=== PATIENT | male | born 1950 | race Caucasian/White ===

== ENCOUNTER 2017-07-21 00:03 | Inpatient (IN) | payer BC ==
[2017-07-21] MEDS ORDERED: FUROSEMIDE 20 MG/ 2ML VIAL ONE (00:25)
[2017-07-21 01:13] LABS: Arterial Blood Carboxyhemoglob 1.3 % (0-1.5); Blood O2 Saturation 97.7 % (92-98.5)
[2017-07-21 02:33] LABS: Protime INR 3.04
[2017-07-21 02:34] LABS: Absolute Lymphocytes (CBC) 1.8 K/uL (0.7-4.9); Absolute Monocytes 1.2 K/uL (0.1-1.3); Absolute Neutrophil 8.4 K/uL (1.8-8.0); Basophils % 1.4 % (0-1.3); Eosinophils % 0.2 % (0-4.4); Hematocrit 38.7 % (39.6-49.0); Lymphocytes % 15.8 % (15.3-44.8); MCH 25.3 pg (27.0-35.0); MCV 82.3 fL (80-100); MPV 9.2 fL (7.6-11.3); Monocytes % 10.6 % (3.3-12.3)
[2017-07-21] MEDS ORDERED: LORazepam 2 MG/ML VIAL ONE (03:11)
[2017-07-21] MEDS ORDERED: RSI MEDICATION KIT IV ONE (03:17)
[2017-07-21 03:20] LABS: Albumin 3.5 g/dL (3.2-5.5); Bilirubin Direct 5.5 mg/dL (0-0.2); Magnesium 1.9 mg/dL (1.8-2.5); Protein, Total 7.8 g/dL (6.0-8.3)
[2017-07-21 03:22] LABS: Bilirubin Total 10.3 mg/dL (0.3-1.2); Potassium 3.8 mEq/L (3.6-5.0)
[2017-07-21] MEDS ORDERED: CEFEPIME 1 GM/100 ML BAG IV ONE (03:23)
[2017-07-21] MEDS ORDERED: VANCOMYCIN/NS 1 gm 1 GM/250 ML BAG ONE (03:23)
[2017-07-21] MEDS ORDERED: D50W 25 GM/50 ML SYRINGE IV ONE ×3 (03:27→08:40)
[2017-07-21] MEDS ORDERED: PROPOFOL 1,000 MG/100 ML VIAL IV ONE (03:34)
[2017-07-21] MEDS ORDERED: NOREPINEPHRINE 4mg/D5W 250mL 4 MG/250 ML BAG IV ONE (03:57)
[2017-07-21] MEDS ORDERED: MIDAZOLAM HCL 2 MG/2 ML INJ ONE ×2 (04:10→05:07)
[2017-07-21 04:17] LABS: Anisocytosis 3+; Blood Morphology Comment NOTED (NOT SEEN); Platelet Estimate ADEQ; Target Cells 1+; Teardrop Cell 3+; Urine White Blood Cell Casts OK
[2017-07-21 04:42] LABS: Arterial Blood Carboxyhemoglob 0.6 % (0-1.5); Blood O2 Saturation 99.1 % (92-98.5)
[2017-07-21] MEDS ORDERED: NA CHLORIDE 0.9% 1,000 ML ONE ×2 (04:55→05:31)
[2017-07-21] MEDS ORDERED: FENTANYL CITR 100 MCG/2 ML ONE (05:02)
[2017-07-21 05:35] LABS: Urine Blood TRACE (NEG); Urine Glucose NEGATIVE (NEG); Urine Protein 3+ (NEG); Urine Specific Gravity >1.030 (1.005-1.030)
--- NOTE | 2017-07-21 05:42 | ER ---
Nurse's Notes [facility] Name: Chai Rodrigues Age: 66 yrs Sex: Male : 1950 Arrival Date: 07/21/2017 Time: 00:10 Bed 3 Private MD: Diagnosis: Severe sepsis with septic shock Presentation: 07/20 23:58 Presenting complaint: EMS states: they were toned out for pt having shortness of breath bb getting progressively worse. Transition of care: patient was not received from another setting of care. Onset of symptoms was July 21, 2017. Care prior to arrival: IV initiated. 20 GA, in the right antecubital area, Glucose check: 129 Oxygen administered. via nasal cannula. 23:58 Method Of Arrival: EMS: [facility] bb 23:58 Acuity: LES 2 bb Historical: - Allergies: 07/21 00:14 Iodine; bb - Home Meds: 00:14 acetaminophen 500 mg Oral tab 1 tab twice a day [Active]; amiodarone 400 mg Oral tab 1 bb tab once daily [Active]; atorvastatin 40 mg Oral tab 1 tab once daily [Active]; carvedilol 25 mg Oral tab every 12 hours [Active]; Centrum Oral [Active]; ciprofloxacin 500 mg BID Oral [Active]; clonazepam 0.5 mg Oral tab 1 tab 3 times per day [Active]; dicyclomine 10 mg Oral cap 1 cap daily [Active]; duloxetine 30 mg Oral cpDR 1 cap once daily [Active]; furosemide 40 mg Oral tab 1 tab 2 times per day [Active]; levothyroxine 125 mcg tab 1 tab once daily [Active]; melatonin 10 mg Oral tab nightly [Active]; metolazone 10 mg Oral tab take 1 tab 1 hour prior to morning Lasix on Sat, Mon, Wed [Active]; pantoprazole 40 mg Oral TbEC 1 tab once daily [Active]; potassium chloride 10 mEq Oral cpER 2 caps 2 times per day [Active]; Wellbutrin XL 150 mg Oral Tb24 1 tab once daily [Active]; zolpidem 10 mg Oral tab 1 tab once daily [Active]; - PMHx: 00:14 CARPEL TUNNER; CHF; colon cancer; Hyperlipidemia; Hypertension; Pneumonia; bb - Immunization history:: Adult Immunizations up to date, Pneumococcal vaccine is up to date, Flu vaccine is up to date. - Social history:: Smoking status: Patient/guardian denies using tobacco, Patient/guardian denies using alcohol, street drugs. Screenin:52 Abuse screen: Denies threats or abuse. Nutritional screening: No deficits noted. ag2 Tuberculosis screening: No symptoms or risk factors identified. Fall Risk Gait- Weak (10 pts.). Assessment: 00:52 General: Appears distressed, uncomfortable, obese, unkempt, Behavior is cooperative, ag2 anxious, Smells of Reports SOB off and on for last month. Pain: Denies pain. Neuro: Level of Consciousness is awake, alert, obeys commands, Oriented to person, place, time, Strand Galvanizer are equal bilaterally Weakness Pupils are sluggish, Cardiovascular: Capillary refill is > 3 seconds. Respiratory: Reports shortness of breath at rest labored breathing since patient reports sob off and on for 1 month. GI: Abdomen is distended, noted to have ascites. : Reports Patient reports very urine production for last month. Derm: Skin is moist, Skin is jaundiced, Skin temperature is cool Rash noted that is red, on pelvis. Musculoskeletal: General weakness noted. 01:05 Reassessment: 18fr fofana catheter placed. 8cc catheter ballon inflated, one attempt, ag2 urine return and sent off for urinalysis. . 01:32 Reassessment: Pt grand daughter states she is going to leave but will be back, gave ea contact info in case of an emergency Geeta Rivera [phone]. 01:48 Reassessment: patient complaining of urinary pain. Fofana has minimal dark urine in ag2 collection bag. Patient alert, oriented. Patient on 2L NC patient breathing effort improving with oxgyen. . 02:31 Reassessment: Patient in room with NC off, Patient sob, spo2-unable to read. Placed ag2 patient back on NC at 2L. warmed fingers, spo2: 97%. Patient sitting up in bed stating "I cannot get comfortable". repositioned patient.. 03:55 Reassessment: PROPOFOL ON HOLD 2/2 HYPOTENSION. bp 04:15 Reassessment: LEVOPHED TITRATED TO 20 MCG/MIN. bp 04:30 Reassessment: PT AGITATED AND UNCOOPERATIVE. UNABLE TO RESPOND TO VERBAL STIMULI OR bp PARTICIPATE IN HEALTH CARE PROCESS. RESTRAINTS PLACED FOR PT SAFETY. 04:30 Reassessment: LEVOPHED TO 30 MCG/MIN. bp 06:39 Reassessment: pt intubated, ETT in place, OG in place, fofana catheter in place, IV site bb patent, intact with fluids infusing, pt accompanied by Rachel ARANDA, Milton RT, Sintia RN, Suzanne RN, [facility] tech to ICU bed 3, pt on monitor, bagged by Rachel ARANDA, report given to Nadira WILSON. Vital Signs: 00:14 BP 151 / 125; Pulse 132; Resp 28 S; Temp 98.2(A); Pulse Ox 96% on 2 lpm NC; Weight bb 158.76 kg (R); Height 5 ft. 8 in. (172.72 cm) (R); Pain 0/10; 01:21 BP 152 / 134; Pulse 132; Resp 24; Pulse Ox 97% 2 lpm ; ag2 02:34 BP 138 / 96; Pulse 103; Resp 32; Pulse Ox 99% on 2 lpm NC; ag2 03:30 BP 141 / 107; Pulse 137; Resp 30; Pulse Ox 100% ; bp 03:45 BP 89 / 33; Pulse 123; Resp 28; Pulse Ox 96% ; bp 04:00 BP 63 / 32; Pulse 133; Resp 30; Pulse Ox 100% ; bp 04:15 BP 94 / 49; Pulse 140; Resp 27; Pulse Ox 98% ; bp 04:34 BP 129 / 107; Pulse 142; Resp 30; Pulse Ox 100% ; bp 04:47 BP 65 / 29; Pulse 141; Resp 30; Pulse Ox 97% ; bp 05:00 BP 112 / 87; Pulse 146; Resp 27; Pulse Ox 97% ; bp 05:15 BP 109 / 43; Pulse 129; Resp 20; Pulse Ox 100% on 50% FiO2 ETT vent; tl2 05:30 BP 98 / 44; Pulse 138; Resp 31; Pulse Ox 100% on 50% FiO2 ETT vent; tl2 05:45 BP 106 / 32; Pulse 135; Resp 26; Pulse Ox 99% on 50% FiO2 ETT vent; tl2 06:00 BP 124 / 97; Pulse 134; Resp 27; Pulse Ox 98% on 50% FiO2 ETT vent; tl2 00:14 Body Mass Index 53.22 (158.76 kg, 172.72 cm) ED Course: 00:10 Patient arrived in ED. rg2 00:13 Triage completed. bb 00:14 Arm band placed on Patient placed in an exam room, on a stretcher, on oxygen, on bb director of enrollment, on pulse oximetry. EKG completed in triage. Results shown to MD. 00:16 Dinesh Thurman PA is PHCP. jr8 00:16 Hayden Benjamin MD is Attending Physician. jr8 00:22 Sintia Byrnes RN is Primary Nurse. ea 00:52 Patient has correct armband on for positive identification. Placed in gown. Bed in low ag2 position. Call light in reach. Side rails up X2. Adult w/ patient. 00:52 No provider procedures requiring assistance completed. Maintain EMS IV. Dressing ag2 intact. Site clean \\T\\ dry. 00:56 X-ray completed. Portable x-ray completed in exam room. jw2 01:10 XRAY Chest (1 view) In Process Unspecified. EDMS 03:32 Assisted provider with intubation using 7.5 mm ETT via oral route. ET tube secured at bp 24cm at the teeth. Set up intubation tray. Intubated by Dinesh PATEL Placement verified by CXR, auscultating bilateral breath sounds, Patient tolerated well. 03:35 NGT: inserted 16 Fr. other ORAL verified placement of air over stomach, verified return bp of gastric contents, Placement verified by X-ray, to intermittent suction. Returned bile. 03:50 Assisted provider with central line placement. Set up central line tray. Triple lumen bp line placed in right femoral. Line placed by Dinesh PATEL Placement verified by blood return, Dressed with Tegaderm, Patient tolerated well. Before procedure, did Practitioner(s) obtain informed consent? No. Patient \\T\\ family education about procedure, CLABSI prevention and S/S of infection? No. Time-out/Briefing performed prior to start of procedure? Yes. Was handwashing/sanitizing done immediately prior to procedure? Yes. Was patient positioned to in a way to prevent air embolism? Yes. Was procedure site sterilized? Yes, with chlorhexidine. Was the site allowed to dry? Yes. Was local anesthetic and/or sedation utilized? Yes. During the procedure, did the Practitioner(s) maintain a sterile field? Yes. Were unused ports clamped during insertion? Yes. Was a 2nd qualified MD obtained after 3 unsuccessful insertion attempts? No. Was blood aspirated from each lumen? Yes. After the procedure, did the Practitioner(s) clean the site and apply a sterile dressing? Yes. 04:07 XRAY Chest (1 view) In Process Unspecified. EDMS 04:13 Radiology exam delayed due to patient too unstable to leave ER - nurse to call when jg1 ready. 05:40 Ethan Sargent MD is Hospitalizing Provider. Restraints: 04:30 Non-Violent Restraint: Order obtained. Initiated on July 21, 2017 at 04:30 Unable to bp provide Restraint education. PT INTUBATED AND SEDATED, UNABLE TO UNDERSTAND. Actions/Behavior observed: has impaired decision making, has decreased level of consciousness, unable to follow instructions, Less restrictive alternatives attempted: decrease environmental stimuli, placed near Nurse station, reoriented to location, medications evaluated, medicated for pain/anxiety, Alternative interventions: Ineffective. Clinical justification for use: airway protection, line protection, patient safety, Mental status: agitated/restless, Cognition: Unable to assess. Circulation: Within defined parameters (based on Cardiovascular assessment) Skin integrity: Within defined parameters (based on Integumentary assessment) Signs of injury related to restraint: No injuries noted. Range of Motion (ROM): declined. Hydration/Food: patient declined. Elimination/Hygiene: with urinary catheter, Restraint status: Soft wrist restraint (Right) Started. Soft wrist restraint (Left) Started. Criteria to discontinue Restraint not met. Restraint continued. Administered Medications: 00:33 Drug: Lasix 60 mg Route: IVP; Site: right antecubital; ea 02:00 Follow up: Response: No adverse reaction ea 03:20 Drug: Ativan 0.5 mg Route: IVP; Site: right antecubital; ea 04:14 Follow up: Response: Anxiety decreased bp 03:30 Drug: Ativan 1.5 mg Route: IVP; Site: right antecubital; bp 04:14 Follow up: Response: Anxiety decreased bp 03:30 Drug: Etomidate 20 mg Route: IVP; Site: right antecubital; bp 05:17 Follow up: Response: No adverse reaction bp 03:30 Drug: D50W 25 ml Route: IVP; Site: right antecubital; bp 05:15 Follow up: Response: No adverse reaction bp 03:31 Drug: Succinylcholine 100 mg Route: IVP; Site: right antecubital; bp 05:16 Follow up: Response: No adverse reaction bp 03:38 Drug: Propofol 5 mcg/kg/min Route: IV; Rate: calculated rate; Site: right antecubital; bp 06:34 Follow up: IV Status: Infusion continued upon admission bp 03:55 Drug: Levophed (4 mg/250 mL D5W 4 mcg/min Route: IV; Rate: calculated rate; Site: right bp antecubital; 06:34 Follow up: IV Status: Infusion continued upon admission bp 04:12 Drug: Versed 4 mg Route: IVP; Site: right antecubital; bp 05:14 Follow up: Response: Anxiety decreased bp 04:57 Drug: Cefepime 1 grams Route: IVPB; Rate: 200 ml/hr; Infused Over: 30 mins; Site: right tl2 antecubital; 05:21 Follow up: Response: No adverse reaction; IV Status: Completed infusion ea 05:02 Drug: NS 0.9% 1000 ml {Note: right femoral central line.} Route: IV; Rate: 1000 ml; bb Site: Other; 06:34 Follow up: IV Status: Completed infusion bp 05:03 Drug: fentaNYL (PF) 100 mcg Route: IVP; Site: right antecubital; bb 05:15 Follow up: Response: Anxiety decreased bp 05:09 Drug: Versed 2 mg Route: IVP; Site: right antecubital; bp 05:15 Follow up: Response: Anxiety decreased bp 05:21 Drug: vancoMYCIN 1 grams Route: IVPB; Infused Over: 2 hrs; Site: right antecubital; ea 06:35 Follow up: IV Status: Completed infusion bp 05:22 CANCELLED (Duplicate Order): Ativan 0.5 mg IVP once ea Point of Care Testing: Blood Glucose: 03:30 Blood Glucose: 59 mg/dL; bp 04:50 Blood Glucose: 80 mg/dL; bp Ranges: Outcome: 05:42 Decision to Hospitalize by Provider. gs 06:42 Patient left the ED. bb Signatures: Dispatcher [employer] EDMS Jason Clark2 Hanh Schaeffer Brenda, RN RN bb Dinesh Thurman PA PA jr8 Rody Sue2 Cat Irving RN RN tl2 Sintia Byrnes RN RN ea Starr, Gregory, MD MD gs Peltier, Brian, RN RN bp Garcia, [employer]na ag2 Corrections: (The following items were deleted from the chart) 02:11 02:09 BP 116 / 76; Pulse 90bpm; Resp 16bpm; Pulse Ox 97%; Temp 98.4F; Pain 10/10; ag2 ag2 03:20 03:19 Ativan 0.5 mg IVP in right antecubital ea yaw
--- NOTE | 2017-07-21 05:42 | EDPHYS ---
Physician Documentation [facility] Name: Chai Rodrigues Age: 66 yrs Sex: Male : 1950 Arrival Date: 07/21/2017 Time: 00:10 Bed 3 Private MD: ED Physician Hayden Benjamin HPI: 07/21 00:59 This 66 yrs old Male presents to ER via EMS with complaints of shortness of jr8 breath. 04:13 The patient has shortness of breath at rest. Onset: The symptoms/episode began/occurred jr8 gradually, 1 month(s) ago, and became worse today, and became persistent today. Duration: The symptoms are continuous. The patient's shortness of breath is aggravated by talking, walking. Associated signs and symptoms: The patient has no apparent associated signs or symptoms. Severity of symptoms: At their worst the symptoms were moderate in the emergency department the symptoms are unchanged. It is unknown whether or not the patient has had similar symptoms in the past. The patient has not recently seen a physician. Patient stated that he has been more short of breath for the past month but has become much worse today. Noticed he has been more yellow in color as well. History of Colon cancer with colon resection less then a year ago . Historical: - Allergies: 00:14 Iodine; bb - Home Meds: 00:14 acetaminophen 500 mg Oral tab 1 tab twice a day [Active]; amiodarone 400 mg Oral tab 1 bb tab once daily [Active]; atorvastatin 40 mg Oral tab 1 tab once daily [Active]; carvedilol 25 mg Oral tab every 12 hours [Active]; Centrum Oral [Active]; ciprofloxacin 500 mg BID Oral [Active]; clonazepam 0.5 mg Oral tab 1 tab 3 times per day [Active]; dicyclomine 10 mg Oral cap 1 cap daily [Active]; duloxetine 30 mg Oral cpDR 1 cap once daily [Active]; furosemide 40 mg Oral tab 1 tab 2 times per day [Active]; levothyroxine 125 mcg tab 1 tab once daily [Active]; melatonin 10 mg Oral tab nightly [Active]; metolazone 10 mg Oral tab take 1 tab 1 hour prior to morning Lasix on Sat, Mon, Wed [Active]; pantoprazole 40 mg Oral TbEC 1 tab once daily [Active]; potassium chloride 10 mEq Oral cpER 2 caps 2 times per day [Active]; Wellbutrin XL 150 mg Oral Tb24 1 tab once daily [Active]; zolpidem 10 mg Oral tab 1 tab once daily [Active]; - PMHx: 00:14 CARPEL TUNNER; CHF; colon cancer; Hyperlipidemia; Hypertension; Pneumonia; bb - Immunization history:: Adult Immunizations up to date, Pneumococcal vaccine is up to date, Flu vaccine is up to date. - Social history:: Smoking status: Patient/guardian denies using tobacco, Patient/guardian denies using alcohol, street drugs. ROS: 04:13 Eyes: Negative for injury, pain, redness, and discharge, ENT: Negative for injury, jr8 pain, and discharge, Neck: Negative for injury, pain, and swelling, Abdomen/GI: Negative for abdominal pain, nausea, vomiting, diarrhea, and constipation, Back: Negative for injury and pain, MS/Extremity: Negative for injury and deformity, Skin: Negative for injury, rash, and discoloration, Neuro: Negative for headache, weakness, numbness, tingling, and seizure. 04:13 Cardiovascular: Positive for edema, orthopnea. 04:13 Respiratory: Positive for dyspnea on exertion, shortness of breath, at rest. Exam: 04:13 Head/Face: Normocephalic, atraumatic. Eyes: Pupils equal round and reactive to light, jr8 extra-ocular motions intact. Lids and lashes normal. Conjunctiva and sclera are icteric with no injection. Cornea within normal limits. Periorbital areas with no swelling, redness, or edema. ENT: Nares patent. No nasal discharge, no septal abnormalities noted. Tympanic membranes are normal and external auditory canals are clear. Oropharynx with no redness, swelling, or masses, exudates, or evidence of obstruction, uvula midline. Mucous membranes moist. Neck: Trachea midline, no thyromegaly or masses palpated, and no cervical lymphadenopathy. Supple, full range of motion without nuchal rigidity, or vertebral point tenderness. No Meningismus. Abdomen/GI: Soft, non-tender, with normal bowel sounds. No distension or tympany. No guarding or rebound. No evidence of tenderness throughout. Back: No spinal tenderness. No costovertebral tenderness. Full range of motion. Skin: Warm, dry with normal turgor. Normal color with no rashes, no lesions, and no evidence of cellulitis. MS/ Extremity: Pulses equal, no cyanosis. Neurovascular intact. Full, normal range of motion. Neuro: Awake and alert, GCS 15, oriented to person, place, time, and situation. Cranial nerves II-XII grossly intact. Motor strength 5/5 in all extremities. Sensory grossly intact. Cerebellar exam normal. Normal gait. 04:13 Cardiovascular: Rate: tachycardic, Rhythm: regular, Pulses: Pulses are 2+ in right radial artery and left radial artery. Heart sounds: normal, normal S1and S2, no S3 or S4, no murmur, no rub, no gallop, Edema: 4+ edema to level of left upper thigh, left lower thigh, left midcalf, left ankle, right upper thigh, right lower thigh, right midcalf and right ankle. 04:13 Respiratory: moderate respiratory distress is noted, Respirations: labored breathing, tachypnea, Breath sounds: decreased breath sounds, that are mild, are located in both bases. Vital Signs: 00:14 BP 151 / 125; Pulse 132; Resp 28 S; Temp 98.2(A); Pulse Ox 96% on 2 lpm NC; Weight bb 158.76 kg (R); Height 5 ft. 8 in. (172.72 cm) (R); Pain 0/10; 01:21 BP 152 / 134; Pulse 132; Resp 24; Pulse Ox 97% 2 lpm ; ag2 02:34 BP 138 / 96; Pulse 103; Resp 32; Pulse Ox 99% on 2 lpm NC; ag2 03:30 BP 141 / 107; Pulse 137; Resp 30; Pulse Ox 100% ; bp 03:45 BP 89 / 33; Pulse 123; Resp 28; Pulse Ox 96% ; bp 04:00 BP 63 / 32; Pulse 133; Resp 30; Pulse Ox 100% ; bp 04:15 BP 94 / 49; Pulse 140; Resp 27; Pulse Ox 98% ; bp 04:34 BP 129 / 107; Pulse 142; Resp 30; Pulse Ox 100% ; bp 04:47 BP 65 / 29; Pulse 141; Resp 30; Pulse Ox 97% ; bp 05:00 BP 112 / 87; Pulse 146; Resp 27; Pulse Ox 97% ; bp 05:15 BP 109 / 43; Pulse 129; Resp 20; Pulse Ox 100% on 50% FiO2 ETT vent; tl2 05:30 BP 98 / 44; Pulse 138; Resp 31; Pulse Ox 100% on 50% FiO2 ETT vent; tl2 05:45 BP 106 / 32; Pulse 135; Resp 26; Pulse Ox 99% on 50% FiO2 ETT vent; tl2 06:00 BP 124 / 97; Pulse 134; Resp 27; Pulse Ox 98% on 50% FiO2 ETT vent; tl2 00:14 Body Mass Index 53.22 (158.76 kg, 172.72 cm) bb Procedures: 03:40 Intubation: Ventilated with 100% NRB prior to procedure. O2 saturation prior to jr8 procedure was 100 %. Intubated orally using # 3 Usha blade with 7.5 mm ETT. was successful on first attempt. Ventilated with Ambu bag. Tube secured with ETT huber measured 24 cm at teeth. Placement verified by CXR, CO2 detector with (+) color change, auscultating bilateral breath sounds, O2 saturation after procedure was 100 %. Patient tolerated well. 04:13 Central Line: the site was prepped with in sterile fashion, chlorhexidine , in the jr8 right femoral vein, in 1 attempts. placement was verified, by blood return, the site was dressed with Tegaderm, using sterile technique, the patient tolerated the procedure, well. MDM: 00:16 Patient medically screened. jr8 03:39 ED course: Patient became acute anxious and fatigued. Respiratory RR and HR elevated. jr8 Elected to intubate to further stabilize patient. 04:13 Data reviewed: vital signs, nurses notes, lab test result(s), EKG, radiologic studies, jr8 plain films. Data interpreted: Pulse oximetry: on room air is 99 %. Interpretation: normal. Counseling: I had a detailed discussion with the patient and/or guardian regarding: the historical points, exam findings, and any diagnostic results supporting the discharge/admit diagnosis, lab results, radiology results, the need for further work-up and treatment in the hospital. 07/21 00:52 Order name: Urine Dipstick--Ancillary (enter results); Complete Time: 05:36 oe 07/21 00:59 Order name: Basic Metabolic Panel; Complete Time: 03:38 EDMS 07/21 00:59 Order name: Liver (Hepatic) Function; Complete Time: 03:38 EDMS 07/21 00:59 Order name: Creatine Phosphokinase; Complete Time: 03:38 EDMS 07/21 00:59 Order name: Magnesium; Complete Time: 03:38 EDMS 07/21 00:17 Order name: XRAY Chest (1 view) [facility] 07/21 00:17 Order name: BIPAP 07/21 00:59 Order name: BNP B-Type Natriuretic Peptide; Complete Time: 03:38 EDMS 07/21 00:59 Order name: Troponin (Emerg Dept Use Only); Complete Time: 02:54 EDMS 07/21 00:59 Order name: CBC with Automated Diff; Complete Time: 04:22 EDMS 07/21 00:59 Order name: Protime (+INR); Complete Time: 02:42 EDMS 07/21 00:59 Order name: PTT, Activated Partial Thromb; Complete Time: 02:42 EDMS 07/21 01:13 Order name: ABG Arterial Blood Gas; Complete Time: 01:21 EDMS 07/21 02:35 Order name: CBC Smear Scan; Complete Time: 04:22 EDMS 07/21 03:04 Order name: ABG [facility] 07/21 03:04 Order name: ABG Arterial Blood Gas; Complete Time: 04:53 EDMS 07/21 03:39 Order name: Blood Culture Adult (2) [facility] 07/21 03:39 Order name: Lactate; Complete Time: 05:30 [facility] 07/21 06:33 Order name: Lactate bp 07/21 00:17 Order name: EKG; Complete Time: 01:03 [facility] 07/21 00:17 Order name: Cardiac monitoring; Complete Time: 00:36 [facility] 07/21 00:17 Order name: EKG - Nurse/Tech; Complete Time: 00:30 07/21 00:17 Order name: IV Saline Lock; Complete Time: 00:36 07/21 00:17 Order name: Labs collected and sent; Complete Time: 00:36 8 07/21 00:17 Order name: O2 Per Protocol; Complete Time: 00:36 07/21 00:17 Order name: O2 Sat Monitoring; Complete Time: 00:37 07/21 00:17 Order name: Urine Dipstick-Ancillary (obtain specimen); Complete Time: 00:50 8 07/21 00:17 Order name: Espinoza; Complete Time: 01:04 8 07/21 03:06 Order name: Glucose Level; Complete Time: 04:48 [facility] 07/21 03:06 Order name: Fingerstick Glucose; Complete Time: 04:12 ag2 07/21 03:41 Order name: XRAY Chest (1 view) [facility] 07/21 04:45 Order name: Restraint:Non-Violent; Complete Time: 04:45 bp Administered Medications: 00:33 Drug: Lasix 60 mg Route: IVP; Site: right antecubital; ea 02:00 Follow up: Response: No adverse reaction ea 03:20 Drug: Ativan 0.5 mg Route: IVP; Site: right antecubital; ea 04:14 Follow up: Response: Anxiety decreased bp 03:30 Drug: Ativan 1.5 mg Route: IVP; Site: right antecubital; bp 04:14 Follow up: Response: Anxiety decreased bp 03:30 Drug: Etomidate 20 mg Route: IVP; Site: right antecubital; bp 05:17 Follow up: Response: No adverse reaction bp 03:30 Drug: D50W 25 ml Route: IVP; Site: right antecubital; bp 05:15 Follow up: Response: No adverse reaction bp 03:31 Drug: Succinylcholine 100 mg Route: IVP; Site: right antecubital; bp 05:16 Follow up: Response: No adverse reaction bp 03:38 Drug: Propofol 5 mcg/kg/min Route: IV; Rate: calculated rate; Site: right antecubital; bp 06:34 Follow up: IV Status: Infusion continued upon admission bp 03:55 Drug: Levophed (4 mg/250 mL D5W 4 mcg/min Route: IV; Rate: calculated rate; Site: right bp antecubital; 06:34 Follow up: IV Status: Infusion continued upon admission bp 04:12 Drug: Versed 4 mg Route: IVP; Site: right antecubital; bp 05:14 Follow up: Response: Anxiety decreased bp 04:57 Drug: Cefepime 1 grams Route: IVPB; Rate: 200 ml/hr; Infused Over: 30 mins; Site: right tl2 antecubital; 05:21 Follow up: Response: No adverse reaction; IV Status: Completed infusion ea 05:02 Drug: NS 0.9% 1000 ml {Note: right femoral central line.} Route: IV; Rate: 1000 ml; bb Site: Other; 06:34 Follow up: IV Status: Completed infusion bp 05:03 Drug: fentaNYL (PF) 100 mcg Route: IVP; Site: right antecubital; bb 05:15 Follow up: Response: Anxiety decreased bp 05:09 Drug: Versed 2 mg Route: IVP; Site: right antecubital; bp 05:15 Follow up: Response: Anxiety decreased bp 05:21 Drug: vancoMYCIN 1 grams Route: IVPB; Infused Over: 2 hrs; Site: right antecubital; ea 06:35 Follow up: IV Status: Completed infusion bp 05:22 CANCELLED (Duplicate Order): Ativan 0.5 mg IVP once ea Point of Care Testing: Blood Glucose: 03:30 Blood Glucose: 59 mg/dL; bp 04:50 Blood Glucose: 80 mg/dL; bp Ranges: Critical Glucose Levels:Adult <50 mg/dl or >400 mg/dl <40 mg/dl or >180 mg/dl Disposition: 05:38 Co-signature as Attending Physician, Hayden Benjamin MD seen and examined pt, septic gs shock responds to fluids pressure better have spoken to dr carson will admit to icu. Disposition: 07/21/17 05:42 Hospitalization ordered by Ethan Carson for Inpatient Admission. Preliminary diagnosis is Severe sepsis with septic shock. - Bed requested for Intensive Care Unit. - Status is Inpatient Admission. bb - Condition is Critical. - Problem is new. - Symptoms have improved. UTI on Admission? No Signatures: Dispatcher [employer] EDNH Jason Clark rg2 [place] oJlly RN RN bb Dinesh Thurman PA PA jr8 Cat Irving RN RN tl2 Sintia Byrnes RN RN ea Starr, Gregory, MD MD gs Peltier, Brian, RN RN Suzanne Schaefer ag2 Corrections: (The following items were deleted from the chart) 01:03 BASIC METABOLIC PANEL+C.LAB.BRZ ordered. EDMS EDMS 44 01:03 BNP+C.LAB.BRZ ordered. EDMS EDMS 44 01:03 CBC+H.LAB.BRZ ordered. EDMS EDMS 01:03 CREATINE PHOSPHOKINASE+C.LAB.BRZ ordered. EDMS EDMS 01:44 01:03 HEPATIC FUNCTION+C.LAB.BRZ ordered. EDMS EDMS 01:44 01:03 PROTIME (+INR)+COAG.LAB.BRZ ordered. EDMS EDMS 01:44 01:03 PTT, ACTIVATED+COAG.LAB.BRZ ordered. EDMS EDMS 01:44 01:03 TROPONIN (EMERG DEPT USE ONLY)+C.LAB.BRZ ordered. EDMS EDMS 01:45 01:03 MAGNESIUM+C.LAB.BRZ ordered. EDMS EDMS 05:10 03:06 Arterial Blood Gas+RC.LAB.BRZ ordered. EDMS EDMS 05:22 03:04 Ativan 0.5 mg IVP once ordered. jr8 ea
[2017-07-21] MEDS ORDERED: NOREPINEPHRINE 4 MG in D5W 250 ML IV PRN (06:36)
[2017-07-21] MEDS ORDERED: NA CHLORIDE 0.9% 1,000 ML IV SCH (07:00)
[2017-07-21] MEDS: D50W 25 GM/50 ML SYRINGE IV ONE ×2 (08:20→08:40)
--- NOTE | 2017-07-21 08:25 | P.CNS ---
Date of Consult: 07/21/17 Reason for Consult: Respiratory failure shock liver Chief Complaint: Shortness of breath History of Present Illness: Patient is 66 years of age admitted with progressive dyspnea for the past month admitted to the hospital with shock liver is currently on a ventilator extensive medical history currently is not responsive home medication list not verified Allergies iodine Allergy (Verified 05/16/17 17:32) Rash Home Medications: Levothyroxine [Synthroid*] 100 mcg PO [id number] 11/19/15 Zolpidem Tartrate [Ambien*] 10 mg PO BEDTIME 11/19/15 Potassium 20 meq PO BID 11/20/15 Pantoprazole [Protonix Tab*] 40 mg PO DAILY 03/06/16 Carvedilol [Coreg*] 12.5 mg PO BID 05/30/16 Duloxetine HCl 60 mg PO DAILY 05/30/16 Melatonin 10 mg PO BEDTIME 05/30/16 Albuterol Sulfate [Proair Respiclick] 2 puff IH Q6HR PRN 01/01/17 Aspirin 81 mg PO DAILY 01/01/17 Cholecalciferol (Vitamin D3) [Vitamin D3] 1 cap PO DAILY 01/01/17 Dicyclomine [Bentyl*] 10 mg PO DAILY 01/01/17 Methocarbamol [Robaxin*] 750 mg PO BID 01/01/17 Simvastatin 40 mg PO DAILY 01/01/17 Tadalafil [Cialis] 20 mg PO DAILY 01/01/17 Tramadol HCl [Ultram] 50 mg PO TID PRN 01/01/17 Sacubitril/Valsartan [Entresto 24 mg-26 mg Tablet] 1 tab PO BID #180 tab Bupropion *Xl* [Wellbutrin XL*] 150 mg PO DAILY 04/25/17 Mexiletine HCl [Mexitil] 150 mg PO BID 04/25/17 Furosemide [Lasix] 80 mg PO DAILY #90 tablet 04/29/17 Spironolactone 25 mg PO DAILY #90 tablet 04/29/17 - Past Medical/Surgical History Diabetic: No -: Hypertension -: CHF -: Hyperlipidemia -: 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 - Family History Father Medical History: Cancer Mother Medical History: Cancer Sister Medical History: Cancer - Social History Smoking Status: Unknown if ever smoked Alcohol use: No CD- Drugs: No Caffeine use: No Review of Systems is unable to be obtained Physical Examination Temp Pulse Resp BP Pulse Ox 97.9 F 126 H 31 H 143/94 H 07/21/17 06:45 07/21/17 07:00 07/21/17 07:00 07/21/17 07:00 General: Unresponsive Neck: Supple Respiratory: Clear to auscultation bilaterally Cardiovascular: No edema, Normal S1 S2 Gastrointestinal: Hypoactive, No tenderness Musculoskeletal: No clubbing Integumentary: Other (Consumed rash around the groin) Laboratory Data (last 24 hrs) 07/21/17 01:57: PT 36.3 H, INR 3.04, APTT 37.7 H 07/21/17 01:57: WBC 11.6 H, Hgb 11.9 L, Hct 38.7 L, Plt Count 180 07/21/17 01:57: B-Natriuretic Peptide 3600 H 07/21/17 01:57: Sodium 137, Potassium 3.8, BUN 25 H, Creatinine 1.74 H, Glucose 84, Magnesium 1.9, Total Bilirubin 10.3 H*, AST 125 H, ALT 56, Alkaline Phosphatase 85 07/21/17 01:20: PT Cancelled, INR Cancelled, APTT Cancelled 07/21/17 01:20: WBC Cancelled, Hgb Cancelled, Hct Cancelled, Plt Count Cancelled 07/21/17 01:20: B-Natriuretic Peptide Cancelled 07/21/17 01:20: Sodium Cancelled, Potassium Cancelled, BUN Cancelled, Creatinine Cancelled, Glucose Cancelled, Magnesium Cancelled, Total Bilirubin Cancelled, AST Cancelled, ALT Cancelled, Alkaline Phosphatase Cancelled - Problems (1) Respiratory failure Current Visit: Yes Status: Acute Plan: Patient is 66 years of age admitted with progressive dyspnea bilirubin is out of proportion to his liver enzymes most likely obstructive jaundice the Kin is mildly elevated PT INR also elevated chest x-ray shows cardiomegaly with a pacemaker is also hypoglycemic started common D5 broad-spectrum antibiotics ventilatory support arterial blood gases ultrasound of the abdomen patient has a metabolic acidosis is aa gradient appears to be within normal limits I doubt if he has any significant lung damage console GI he appears to have congestive heart failure multiple other medical problems (2) Abnormal liver function test Onset Date: 01/25/16 Current Visit: No Status: Acute
[2017-07-21] MEDS: D5W 1,000 ML IV SCH ×2 (08:29→16:31)
[2017-07-21] MEDS ORDERED: D50W 25 GM/50 ML SYRINGE IV PRN (09:15)
--- NOTE | 2017-07-21 09:30 | P.HP ---
Certification for Inpatient Patient admitted to: Inpatient With expected LOS: >2 Midnights Patient will require the following post-hospital care: None Practitioner: I am a practitioner with admitting privileges, knowledge of patient current condition, hospital course, and medical plan of care. Services: Services provided to patient in accordance with Admission requirements found in Title 42 Section 412.3 of the Code of Federal Regulations Patient History Date of Service: 07/21/17 Primary Care Provider: Adeola Rizzo Reason for admission: Shortness of breath History of Present Illness: Patient is an office patient of Adeola Rizzo. Has has a history of poorly controlled chf. He has come to the office several times with weakness and fluid overload. Came to the ER Last night with signs of sepsis and was intubated. No family at the bedside. He has an elevated bilirubin. Mildly elevated wbc. Allergies iodine Allergy (Verified 05/16/17 17:32) Rash Home Medications: Levothyroxine [Synthroid*] 100 mcg PO [id number] 11/19/15 Zolpidem Tartrate [Ambien*] 10 mg PO BEDTIME 11/19/15 Potassium 20 meq PO BID 11/20/15 Pantoprazole [Protonix Tab*] 40 mg PO DAILY 03/06/16 Carvedilol [Coreg*] 12.5 mg PO BID 05/30/16 Duloxetine HCl 60 mg PO DAILY 05/30/16 Melatonin 10 mg PO BEDTIME 05/30/16 Albuterol Sulfate [Proair Respiclick] 2 puff IH Q6HR PRN 01/01/17 Aspirin 81 mg PO DAILY 01/01/17 Cholecalciferol (Vitamin D3) [Vitamin D3] 1 cap PO DAILY 01/01/17 Dicyclomine [Bentyl*] 10 mg PO DAILY 01/01/17 Methocarbamol [Robaxin*] 750 mg PO BID 01/01/17 Simvastatin 40 mg PO DAILY 01/01/17 Tadalafil [Cialis] 20 mg PO DAILY 01/01/17 Tramadol HCl [Ultram] 50 mg PO TID PRN 01/01/17 Sacubitril/Valsartan [Entresto 24 mg-26 mg Tablet] 1 tab PO BID #180 tab Bupropion *Xl* [Wellbutrin XL*] 150 mg PO DAILY 04/25/17 Mexiletine HCl [Mexitil] 150 mg PO BID 04/25/17 Furosemide [Lasix] 80 mg PO DAILY #90 tablet 04/29/17 Spironolactone 25 mg PO DAILY #90 tablet 04/29/17 - Past Medical/Surgical History Has patient received pneumonia vaccine in the past: Yes Diabetic: No -: Hypertension -: CHF -: Hyperlipidemia -: History of a blood clot to the left ventricle, 2009 -: History of defibrillator placement -: Diverticulosis -: Obesity -: Chronic back pain -: DJD/DDD of the lower spine -: Atrial fibrillation -: Colon cancer -: Chronic kidney disease -: defib/pacemaker placement -: ventral hernia repair -: right femur gorge placed/removed -: bone grafts bilat wrist -: Appendectomy -: Tonsillectomy with adenoidectomy -: testicular sx -: Colon resection Psychosocial/ Personal History: He is 25 years, has 2 stepchildren, 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 - Family History Father -: Cancer Mother -: Cancer Sister -: Cancer - Social History Alcohol use: No CD- Drugs: No Caffeine use: No Review of Systems is unable to be obtained Other: livedo reticularis Physical Examination - Vital Signs Temperature: 97.9 F Blood Pressure: 143/94 Pulse: 126 Respirations: 31 - Physical Exam General: In no apparent distress, Obese, Other (intubated) HEENT: Atraumatic, PERRLA, Mucous membr. moist/pink, EOMI, Sclerae nonicteric Neck: Supple, 2+ carotid pulse no bruit, No LAD, Without JVD or thyroid abnormality Respiratory: Clear to auscultation bilaterally, Normal air movement Cardiovascular: Regular rate/rhythm, Normal S1 S2 Gastrointestinal: Normal bowel sounds, No tenderness Musculoskeletal: No tenderness Integumentary: No rashes, Other (livedo reticularis) Neurological: Normal gait, Normal speech, Normal strength at 5/5 x4 extr, Normal tone, Normal affect Lymphatics: No axilla or inguinal lymphadenopathy - Studies Laboratory Data (last 24 hrs) 07/21/17 01:57: PT 36.3 H, INR 3.04, APTT 37.7 H 07/21/17 01:57: WBC 11.6 H, Hgb 11.9 L, Hct 38.7 L, Plt Count 180 07/21/17 01:57: B-Natriuretic Peptide 3600 H 07/21/17 01:57: Sodium 137, Potassium 3.8, BUN 25 H, Creatinine 1.74 H, Glucose 84, Magnesium 1.9, Total Bilirubin 10.3 H*, AST 125 H, ALT 56, Alkaline Phosphatase 85 07/21/17 01:20: PT Cancelled, INR Cancelled, APTT Cancelled 07/21/17 01:20: WBC Cancelled, Hgb Cancelled, Hct Cancelled, Plt Count Cancelled 07/21/17 01:20: B-Natriuretic Peptide Cancelled 07/21/17 01:20: Sodium Cancelled, Potassium Cancelled, BUN Cancelled, Creatinine Cancelled, Glucose Cancelled, Magnesium Cancelled, Total Bilirubin Cancelled, AST Cancelled, ALT Cancelled, Alkaline Phosphatase Cancelled Assessment and Plan - Problems (Diagnosis) (1) Sepsis Current Visit: Yes Status: Acute Plan: Start vancomycin and meropenem. Cultures are pending. Will continue the d5w. repeated acuchecks. Will be gentle with the fluids due to his history of chf. Qualifiers: Sepsis type: sepsis due to unspecified organism Qualified Code(s): A41.9 - Sepsis, unspecified organism (2) Shock liver Current Visit: Yes Status: Acute Plan: Ultrasound pending to rule out obstructions. Will monitor his cmp daily (3) CHF (congestive heart failure) Current Visit: No Status: Chronic Plan: Patient has a history of severe chf. will continue monitoring his functions Gentle hydration. Qualifiers: Qualified Code(s): I50.21 - Acute systolic (congestive) heart failure Discharge Plan: Home Plan to discharge in: Greater than 2 days - Advance Directives Does patient have a Living Will: No Does patient have a Durable POA for Healthcare: No - Code Status/Comfort Care Code Status Assessed: No Code Status: Full Code Physician Review: Patient Assessed, Agree with Above Assessment and Plan Critical Care: Yes Time Spent Managing Pts Care (In Minutes): 75
[2017-07-21] MEDS: FAMOTIDINE 20 MG/2 ML VIAL IV SCH ×2 (09:52→20:18)
[2017-07-21] MEDS: LORazepam 2 MG/ML VIAL IV PRN ×5 (09:57→23:48)
[2017-07-21] MEDS ORDERED: VANCOMYCIN/NS 1 gm 1 GM/250 ML BAG IV SCH (10:00)
--- NOTE | 2017-07-21 10:26 | RAD REPORT ---
EXAM DESCRIPTION: RAD - Chest Single View - 07/21/2017 4:07 am CLINICAL HISTORY: Dictation MRI COMPARISON: May 16 TECHNIQUE: AP portable chest image was obtained 0402 hours . FINDINGS: CVA no motion degradation is present. Endotracheal tube is in place with the tip at the to p of the aortic arch 2 cm above paulette. Pacemaker/ defibrillator is in place. There significant cardi ac enlarged. Enlarging mass consolidation is not seen. Trachea is midline. No large pleural effusion. Motion limits pneumothorax assessment. IMPRESSION: Exam has substantial motion degradation. However, ETT position can't be assessed. Tip at the top of the aortic arch 2 cm above the paulette.
[2017-07-21] MEDS ORDERED: ETOMIDATE 20 MG/10 ML VIAL IV ONE (10:38)
[2017-07-21] MEDS ORDERED: SUCCINYLCHOLINE 20 MG/ML (10 ML) IV ONE (10:38)
[2017-07-21 11:52] LABS: Arterial Blood Carboxyhemoglob 1.4 % (0-1.5); Blood Gas Oxyhemoglobin 93.5 % (94-97); Blood O2 Saturation 96.8 % (92-98.5)
[2017-07-21] MEDS: MIDAZOLAM HCL 2 MG/2 ML INJ IV PRN ×5 (12:43→23:13)
[2017-07-21] MEDS: NA CHLORIDE 0.9% 250 ML IV PRN ×4 (13:38→14:30)
[2017-07-21] MEDS: FENTANYL CITR 100 MCG/2 ML IV PRN ×3 (13:48→21:32)
[2017-07-21] MEDS ORDERED: NA CHLORIDE 0.9% 1,000 ML IV ONE (14:58)
--- NOTE | 2017-07-21 15:52 | RAD REPORT ---
EXAM DESCRIPTION: US - Abdomen Exam Limited - 07/21/2017 3:46 pm CLINICAL HISTORY: Abnormal liver function COMPARISON: None. FINDINGS: Exam is limited. Patient was unable to fully cooperate with the examination. Liver is 18 c m in maximum dimension. No focal liver lesion identified. Fatty infiltration pattern is evident. No a scites or capsular nodularity. Biliary tree dilatation is not identified. IMPRESSION: Fatty infiltration of the liver. No focal liver lesions seen.
[2017-07-21] MEDS: Meropenem 500 MG in NA CHLORIDE 0.9% 100 ML IV SCH (16:31)
[2017-07-21] MEDS ORDERED: Meropenem 500 MG VIAL IV SCH (17:00)
[2017-07-21] MEDS: HALOPERIDOL LACT 5 MG/ML INJ IV PRN (19:44)
[2017-07-21] MEDS ORDERED: VANCOMYCIN 1GM/D5W 200 ML IV SCH (21:00)
--- NOTE | 2017-07-21 22:32 | EKG ---
Test Date: 2017-07-21 Test Time: 00:10:49 Engagement Engineer: CONSTANCE MEASUREMENT RESULTS: Intervals: Rate: 131 CO: QRSD: 130 QT: 356 QTc: 525 [place]: P: CO: QRS: 78 T: 8 INTERPRETIVE STATEMENTS: Ventricular-paced rhythm Abnormal ECG Compared to ECG 05/16/2017 11:31:07 No significant changes Electronically Signed On 07-21-17 22:31:51 CDT by Jhonathan Garcia
[2017-07-22] MEDS: Meropenem 500 MG in NA CHLORIDE 0.9% 100 ML IV SCH ×3 (00:05→16:09)
[2017-07-22] MEDS: FENTANYL CITR 100 MCG/2 ML IV PRN ×3 (00:56→08:08)
[2017-07-22] MEDS: MIDAZOLAM HCL 2 MG/2 ML INJ IV PRN (02:26)
[2017-07-22] MEDS: D5W 1,000 ML IV SCH (04:33)
[2017-07-22] MEDS: LORazepam 2 MG/ML VIAL IV PRN ×2 (04:44→07:25)
[2017-07-22 05:17] LABS: Absolute Lymphocytes (CBC) 1.2 K/uL (0.7-4.9); Absolute Monocytes 0.8 K/uL (0.1-1.3); Absolute Neutrophil 9.7 K/uL (1.8-8.0); Basophils % 0.6 % (0-1.3); Eosinophils % 0.1 % (0-4.4); Hematocrit 30.6 % (39.6-49.0); Lymphocytes % 10.4 % (15.3-44.8); MCH 25.8 pg (27.0-35.0); MPV 9.1 fL (7.6-11.3); Monocytes % 6.7 % (3.3-12.3); RBC Red Blood Cell Count 3.78 M/uL (4.33-5.43)
[2017-07-22 05:57] LABS: Albumin 2.6 g/dL (3.2-5.5); Magnesium 1.5 mg/dL (1.8-2.5); Phosphorus 4.2 mg/dL (2.5-4.3); Potassium 3.5 mEq/L (3.6-5.0); Protein, Total 5.5 g/dL (6.0-8.3)
[2017-07-22 05:57] LABS: Arterial Blood Carboxyhemoglob 1.4 % (0-1.5); Blood Gas Oxyhemoglobin 94.7 % (94-97); Blood O2 Saturation 97.8 % (92-98.5)
[2017-07-22 05:59] LABS: Bilirubin Total 10.6 mg/dL (0.3-1.2)
[2017-07-22 06:44] LABS: Thyroid Stimulating Hormone 5.08 uIU/mL (0.34-5.60)
--- NOTE | 2017-07-22 08:32 | RAD REPORT ---
EXAM DESCRIPTION: RAD - Chest Single View - 07/22/2017 6:24 am CLINICAL HISTORY: Respiratory failure. COMPARISON: 07/21/2017 FINDINGS: Portable technique limits examination quality. Tip of the ET tube is above the paulette. Enteric tube descends into the upper abdomen. Mild bilateral pulmonary opacities are present likely representing pulmonary edema or pneumonia. The heart is signif icantly enlarged with multilead pacer/defibrillator device present. IMPRESSION: Tip of the ET tube is above the paulette.
--- NOTE | 2017-07-22 08:35 | P.PN ---
Subjective Date of Service: 07/22/17 Primary Care Provider: Adeola Rizzo Chief Complaint: Respiratory failure Patient's condition is stable he does become agitated fentanyl works well Review of Systems is unable to be obtained Physical Examination - Vital Signs Temperature: 97.8 F Blood Pressure: 95/65 Pulse: 113 Respirations: 18 Pulse Ox (%): 100 - Physical Exam General: Unresponsive, Other (Agitated) Neck: Supple Respiratory: Clear to auscultation bilaterally Cardiovascular: Edema (2+ edema) Gastrointestinal: Normal bowel sounds, Hypoactive Assessment & Plan - Problems (Diagnosis) (1) Respiratory failure Current Visit: Yes Status: Acute Plan: Patient admitted with respiratory failure his oxygenation is improving he is requiring anywhere from 50-30% FiO2 abnormal liver function test appears to be cholestatic as enzymes have become more elevated today the Kin is stable ultrasound of the liver shows fatty infiltration renal function is slightly worse toxicology screen ordered mildly anemic continue with broad-spectrum antibiotics for now nephrology in GI consult (2) Abnormal liver function test Onset Date: 01/25/16 Current Visit: No Status: Acute Plan: Abnormal liver function test cholestatic picture on admission his liver enzymes are elevated toxicology screen ultrasound of the abdomen no evidence offer coli stasis Physician Review: Patient Assessed, Agree with Above Assessment and Plan
[2017-07-22] MEDS ORDERED: VANCOMYCIN 2 GM in NA CHLORIDE 0.9% 500 ML IVPB SCH (09:00)
[2017-07-22] MEDS: PROPOFOL 1,000 MG/100 ML VIAL IV PRN ×3 (09:25→21:31)
[2017-07-22 09:28] LABS: RBC Red Blood Cell Count 3.65 M/uL (4.33-5.43)
[2017-07-22] MEDS: FAMOTIDINE 20 MG/2 ML VIAL IV SCH ×2 (09:34→21:31)
--- NOTE | 2017-07-22 10:40 | P.PN ---
Subjective Date of Service: 07/22/17 Primary Care Provider: Adeola Rizzo Chief Complaint: Respiratory failure Subjective: Worsening (Patient is agitated. Labs are worsening) Review of Systems is unable to be obtained Physical Examination - Vital Signs Temperature: 97.8 F Blood Pressure: 98/62 Pulse: 115 Respirations: 17 Pulse Ox (%): 95 - Physical Exam General: Unresponsive (intubated) HEENT: Atraumatic, PERRLA, EOMI Neck: Supple, JVD not distended Respiratory: Clear to auscultation bilaterally, Normal air movement Cardiovascular: Regular rate/rhythm, Normal S1 S2 Gastrointestinal: Normal bowel sounds, No tenderness Musculoskeletal: No tenderness Integumentary: No rashes Neurological: Normal speech, Normal tone, Normal affect Lymphatics: No axilla or inguinal lymphadenopathy Assessment & Plan - Problems (Diagnosis) (1) Sepsis Current Visit: Yes Status: Acute Plan: Start vancomycin and meropenem. Cultures are pending. Will continue the d5w. repeated acuchecks. Will be gentle with the fluids due to his history of chf. Qualifiers: Sepsis type: sepsis due to unspecified organism Qualified Code(s): A41.9 - Sepsis, unspecified organism (2) Shock liver Current Visit: Yes Status: Acute Plan: Ultrasound pending to rule out obstructions. Fatty liver on Ultrasound. The patients liver profile is worsening. Will consult Dr. Tejeda (3) CHF (congestive heart failure) Current Visit: No Status: Chronic Plan: Patient has a history of severe chf. will continue monitoring his functions Gentle hydration. Qualifiers: Qualified Code(s): I50.21 - Acute systolic (congestive) heart failure (4) Renal failure (ARF), acute on chronic Current Visit: Yes Status: Acute Plan: will consult nephrology Qualifiers: Acute renal failure type: with acute renal cortical necrosis Chronic kidney disease stage: stage 3 (moderate) Qualified Code(s): N17.1 - Acute kidney failure with acute cortical necrosis; N18.3 - Chronic kidney disease, stage 3 (moderate); N18.3 - Chronic kidney disease, stage 3 (moderate) Discharge Plan: Home Plan to discharge in: Greater than 2 days - Code Status/Comfort Care Code Status Assessed: No Code Status: Full Code Physician Review: Patient Assessed, Agree with Above Assessment and Plan Critical Care: No Time Spent Managing Pts Care (In Minutes): 25
--- NOTE | 2017-07-22 11:42 | RAD REPORT ---
EXAM DESCRIPTION: RAD - Chest Single View - 07/22/2017 11:35 am CLINICAL HISTORY: Dyspnea COMPARISON: 05/16/2017, 04/25/2017 FINDINGS: Portable technique limits examination quality. The lungs are grossly clear. The heart is moderately enlarged in size with multilead pacer/ defibrill ator device noted. No displaced fractures. IMPRESSION: No acute intrathoracic process suspected.
[2017-07-22 12:13] LABS: Barbiturates NEGATIVE; Benzodiazepines POSITIVE; Cocaine NEGATIVE; METHAMPHETAM NEGATIVE; Opiates NEGATIVE; Phencyclidine NEGATIVE; THC Cannibis NEGATIVE
[2017-07-22] MEDS: D5 0.9 NS 1,000 ML IV SCH ×2 (13:42→23:35)
[2017-07-22] MEDS: MIDODRINE HCL 5 MG TABLET FT SCH ×2 (13:52→21:30)
[2017-07-22] MEDS ORDERED: KCL 20 MEQ/100 mL IVPB 20 MEQ/100 ML BAG IV SCH (14:00)
--- NOTE | 2017-07-22 15:32 | RAD REPORT ---
EXAM DESCRIPTION: US - Renal Ultrasound-Complete - 07/22/2017 3:00 pm CLINICAL HISTORY: Acute renal failure. COMPARISON: None. FINDINGS: The right kidney measures 11.5 x 5.1 x 6.7 cm. The left kidney measures 10.9 x 5.3 x 5.1 cm. Renal cortical thickness and echogenicity are normal. No hydronephrosis or suspicious renal mass. Exam is technically limited due to body habitus. IMPRESSION: No hydronephrosis or suspicious renal mass. No other significant findings.
--- NOTE | 2017-07-22 15:52 | ECHO ---
HEIGHT: 5 ft 8 in WEIGHT: 335 lb 12.8 oz DATE OF STUDY: 07/22/[address]: Marcos Ferguson MD 2-DIMENSIONAL: YES M.MODE: YES DOPPLER: YES COLOR FLOW: YES TDS: NO PORTABLE: YES DEFINITY: NO BUBBLE STUDY: NO DIAGNOSIS: SHOCK CARDIAC HISTORY: CATHERIZATION: YES SURGERY: NO PROSTHETIC VALVE: NO PACEMAKER: YES MEASUREMENTS (cm) DIASTOLIC (NORMALS) SYSTOLIC (NORMALS) IVSd 0.9 (0.6-1.2) LA Diam 4.7 (1.9-4.0) LVEF 25% LVIDd 6.8 (3.5-5.7) LVIDs 6.0 (2.0-3.5) %FS 12% LVPWd 1.1 (0.6-1.2) Ao Diam 2.9 (2.0-3.7) 2 DIMENSIONAL ASSESSMENT: RIGHT ATRIUM: DILATED LEFT ATRIUM: DILATED RIGHT VENTRICLE: DILATED/PACEMAKER CATHETER LEFT VENTRICLE: DILATED TRICUSPID VALVE: NORMAL MITRAL VALVE: NORMAL PULMONIC VALVE: NORMAL AORTIC VALVE: SCLEROSIS PERICARDIAL EFFUSION: SMALL AORTIC ROOT: NORMAL LEFT VENTRICULAR WALL MOTION: SEVERE GLOBAL HYPOKINESIS. DOPPLER/COLOR FLOW: MILD AORTIC, MITRAL AND TRICUSPID REGURGITATION. NORMAL RIGHT VENTRICULAR SYSTOLIC PRESSURE. NO AORTIC STENOSIS. COMMENTS: SEVERELY DEPRESSED LEFT VENTRICULAR EJECTION FRACTION. FOUR CHAMBER DILATATION. PACEMAKER IN RIGHT VENTRICLE. AORTIC SCLEROSIS WITH NO AORTIC STENOSIS. SMALL PERICARDIAL EFFUSION. MILD AORTIC, MITRAL AND TRICUSPID REGURGITATION. TECHNOLOGIST: DARIO HATFIELD
[2017-07-22 17:38] LABS: Potassium 3.4 mEq/L (3.6-5.0)
[2017-07-22 18:22] LABS: Albumin 2.2 g/dL (3.2-5.5); Bilirubin Direct 6.4 mg/dL (0-0.2)
[2017-07-22 18:23] LABS: Bilirubin Total 10.4 mg/dL (0.3-1.2); Protime INR 4.23
[2017-07-22 19:11] LABS: Absolute Lymphocytes (CBC) 0.7 K/uL (0.7-4.9); Absolute Monocytes 0.6 K/uL (0.1-1.3); Absolute Neutrophil 6.8 K/uL (1.8-8.0); Basophils % 0.4 % (0-1.3); Eosinophils % 0.4 % (0-4.4); Hematocrit 27.9 % (39.6-49.0); Lymphocytes % 8.9 % (15.3-44.8); MCH 26.7 pg (27.0-35.0); MPV 8.8 fL (7.6-11.3); Monocytes % 6.9 % (3.3-12.3); RBC Red Blood Cell Count 3.45 M/uL (4.33-5.43)
[2017-07-22 21:08] LABS: Urine White Blood Cell Casts OK
[2017-07-22 21:09] LABS: Anisocytosis 3+; Blood Morphology Comment NOTED (NOT SEEN); Platelet Estimate DECR; Poikilocytosis 1+
[2017-07-23] MEDS: Meropenem 500 MG in NA CHLORIDE 0.9% 100 ML IV SCH ×3 (00:53→16:13)
[2017-07-23] MEDS: D5 0.9 NS 1,000 ML IV SCH (00:58)
--- NOTE | 2017-07-23 00:58 | CON ---
Date of Consultation: 07/22/2017 Chief Complaint: Acute kidney injury. History Of Present Illness: The patient was found to have progressively worse kidney function over the last 48 hours. He is in ICU due to hypotension and respiratory failure, sepsis, liver failure and acute kidney injury. He was found to have elevated white count and has been treated with IV fluids for volume depletion and sepsis. He was found to have hypoglycemia and dextrose infusion was started. The patient was found to have elevated liver function tests; elevated bilirubin and transaminases . Urine output has not improved significantly over the last 24 hours. The patient has multiple medical problems. Prior to this admission, he was treated with spironolactone, furosemide, and angiotensin receptor soraya. He has complicated history of heart disease with atrial fibrillation and congestive heart failure. Previously , he required defibrillator and pacemaker. He has a chronic back pain, but there is no history of nonsteroidal anti-inflammatory medication. Yesterday, he was found to have elevated bilirubin, jaundice. Total bilirubin was 10.3, AST 125, ALT 56. He developed acute kidney injury with BUN 25 and creatinine 1.74. He has declining urine output and azotemia has been raising after last 24 hours. Most likely, he has obstructive jaundice. There was mildly elevated PT/INR. Chest x-ray showed cardiomegaly, and the patient was found to have hypoglycemia. He was started on D5W. He is on ventilator support and remains hypotensive, was also found to have metabolic acidosis. The patient has severe oliguric acute kidney injury, associated with oliguric acute tubular necrosis, and renal function has declined over the last 24 hours. Today, BUN is 35, creatinine is 2.85. The patient was found to have hyponatremia. Sodium level 132, glucose 138, hypokalemia, potassium was 3.4, carbon dioxide is 25, and chloride 101. Blood gas showed today pH 7.40, pCO2 53.7, pO2 116. Yesterday blood gas showed, pH 7.25, pCO2 23, and pO2 400. Review of Systems: Unobtainable. The patient is intubated and sedated, remains in ICU. Past Medical History: Atrial fibrillation; hypertensive heart and kidney disease; congestive heart failure; GERD; hypothyroid; degenerative disk disease ; chronic back pain, chronic kidney stage 3; ventral hernia repair. Past Surgical History: Right femoral plate removed, bone graft , appendectomy, tonsillectomy, adenoidectomy, testicular surgery, colon resection. Family History: Father: Headache and cancer. Mother: Cancer. Sister: Cancer. Social History: No history of alcohol, illicit drugs, or tobacco. Physical Examination: Vital Signs: Blood pressure is 90/60, heart rate is 112, temperature 97.9. General: The patient is unresponsive, sedated. Eyes: No hemorrhagic changes. icteric sclera Ears, Nose, Mouth and Throat: Oral mucosa moist. The patient is intubated. Neck: No JVD. No bruits. Lungs: Crackles bilaterally present. Heart: S1, S2. No pericardial friction rub GI: Hypoactive bowel sounds. no guarding Extremities: Peripheral edema, generalized edema. Skin: Warm and dry. No skin rashes. Neurological: No tremor. The patient cannot cooperate with neurological examination. The patient is sedated. Laboratory Data: Sodium 142, potassium 3.4, chloride 101, CO2 25, BUN 35, creatinine 2.85, glucose 138, calcium 7.7, total bilirubin 10.4, direct bilirubin 6.4, ALT 793, ALT 310, AP is 59, and LDH is 594. CBC showed hemoglobin 9.2, WBC 8.1, platelet count is 83,000. Drug screen showed benzodiazepine positive. Serology for hepatitis screen is pending. Urinalysis showed specific gravity greater than 1.030, 3+ protein, blood trace, leukocyte esterase negative, glucose negative, urine pH 5. CBC; hemoglobin 9.2, WBC 8.1, platelet count is 83,000. Renal ultrasound showed no hydronephrosis, no suspicious mass, right kidney 11.5, left kidney 10.9 cm in length. Renal cortical thickness and echogenicity are normal. No hydronephrosis. No suspicious mass. Assessment And Plan: Acute kidney injury, severe, nonoliguric secondary to renal hypoperfusion likely acute tubular necrosis. The patient is on IV fluids for volume resuscitation. The patient will continue broad-spectrum antibiotics. Blood culture at this point with preliminary results after 24 hours, which showed no growth. The patient has elevated liver tests and hyperbilirubinemia. Plan is to continue IV fluids with D5 normal saline along with thiamine injection and plan is to start midodrine for blood pressure support to prevent renal hypoperfusion and to attempt to stabilize blood pressure, although the patient may require IV pressors . The patient may need hemodialysis to be started if renal function does not improve over next 24 hours. Urine output somewhat improving with volume resuscitation and today urine output is 350 in last 8 hours. The patient has chronic kidney disease. There is no evidence of obstructive uropathy. Continue to evaluate for possible nephritis, the patient was found to have proteinuria and he will have workup to rule out monoclonal gammopathy of unknown significance. History of congestive heart failure, respiratory failure. The patient will continue ventilator support. MATHEW/EARLENE Voice ID: [id number] Report ID: [id number] [facility] HOSPITALGloria
[2017-07-23] MEDS: MIDODRINE HCL 5 MG TABLET FT SCH ×3 (05:30→20:51)
[2017-07-23 05:54] LABS: Absolute Lymphocytes (CBC) 0.8 K/uL (0.7-4.9); Absolute Monocytes 0.6 K/uL (0.1-1.3); Absolute Neutrophil 6.9 K/uL (1.8-8.0); Basophils % 0.6 % (0-1.3); Eosinophils % 1.6 % (0-4.4); Hematocrit 33.3 % (39.6-49.0); Lymphocytes % 9.8 % (15.3-44.8); MCH 25.4 pg (27.0-35.0); MCV 81.5 fL (80-100); MPV 9.6 fL (7.6-11.3); Monocytes % 7.6 % (3.3-12.3); RBC Red Blood Cell Count 4.08 M/uL (4.33-5.43)
[2017-07-23 05:58] LABS: Protime INR 3.08
[2017-07-23 06:21] LABS: Albumin 2.4 g/dL (3.2-5.5); Magnesium 1.6 mg/dL (1.8-2.5); Phosphorus 3.8 mg/dL (2.5-4.3); Potassium 3.2 mEq/L (3.6-5.0); Protein, Total 5.6 g/dL (6.0-8.3)
[2017-07-23 06:26] LABS: Bilirubin Total 11.9 mg/dL (0.3-1.2)
[2017-07-23] MEDS ORDERED: D5 0.9 NS 1,000 ML IV SCH (08:25)
--- NOTE | 2017-07-23 08:26 | P.PN ---
Subjective Date of Service: 07/23/17 Primary Care Provider: Adeola Rizzo Chief Complaint: Respiratory failure No change patient is on propofol this is jaundiced Review of Systems is unable to be obtained Physical Examination - Vital Signs Temperature: 97.5 F Blood Pressure: 85/60 Pulse: 98 Respirations: 6 Pulse Ox (%): 100 - Physical Exam General: Unresponsive Respiratory: Clear to auscultation bilaterally Cardiovascular: No edema, Normal S1 S2 Gastrointestinal: Hypoactive, Soft and benign Assessment & Plan - Problems (Diagnosis) (1) Respiratory failure Onset Date: 07/22/17 Current Visit: Yes Status: Acute Plan: Patient is currently stable oxygenation satisfactory is on an FiO2 of 35% severely depressed ejection fraction plan to stop the propofol (2) Abnormal liver function test Onset Date: 01/25/16 Current Visit: No Status: Acute Plan: Abnormal liver function tests still jaundiced the [place] elevated urine toxicology screen is negative his liver function tests are beginning to improve start tube feeds cultures negative. Vancomycin renal ultrasound nondiagnostic Physician Review: Patient Assessed, Agree with Above Assessment and Plan
--- NOTE | 2017-07-23 08:31 | P.PN ---
Subjective Date of Service: 07/23/17 Primary Care Provider: Adeola Rizzo Chief Complaint: Respiratory failure Subjective: No new changes Review of Systems is unable to be obtained Physical Examination - Vital Signs Temperature: 97.5 F Blood Pressure: 85/60 Pulse: 98 Respirations: 6 Pulse Ox (%): 100 - Physical Exam General: In no apparent distress, Unresponsive (intubated on propfol drip) HEENT: Atraumatic, PERRLA, EOMI Neck: Supple, JVD not distended Respiratory: Clear to auscultation bilaterally, Normal air movement Cardiovascular: Regular rate/rhythm, Normal S1 S2 Gastrointestinal: Normal bowel sounds, No tenderness Musculoskeletal: No tenderness Integumentary: No rashes Neurological: Normal speech, Normal tone, Normal affect Lymphatics: No axilla or inguinal lymphadenopathy Assessment & Plan - Problems (Diagnosis) (1) Sepsis Onset Date: 07/22/17 Current Visit: Yes Status: Acute Plan: Start vancomycin and meropenem. Cultures are pending. Will continue the d5w. repeated acuchecks. Will be gentle with the fluids due to his history of chf. Qualifiers: Sepsis type: sepsis due to unspecified organism Qualified Code(s): A41.9 - Sepsis, unspecified organism (2) Shock liver Onset Date: 07/22/17 Current Visit: Yes Status: Acute Plan: Ultrasound pending to rule out obstructions. Fatty liver on Ultrasound. The patients liver profile is worsening. Will consult Dr. Tejeda (3) CHF (congestive heart failure) Onset Date: 07/22/17 Current Visit: Yes Status: Chronic Plan: Patient has a history of severe chf. will continue monitoring his functions Gentle hydration. Qualifiers: Qualified Code(s): I50.21 - Acute systolic (congestive) heart failure (4) Renal failure (ARF), acute on chronic Onset Date: 07/22/17 Current Visit: Yes Status: Acute Plan: worsening function. Normal ultrasound. Nephrology is correcting his electolyte imbalance. Qualifiers: Acute renal failure type: with acute renal cortical necrosis Chronic kidney disease stage: stage 3 (moderate) Qualified Code(s): N17.1 - Acute kidney failure with acute cortical necrosis; N18.3 - Chronic kidney disease, stage 3 (moderate); N18.3 - Chronic kidney disease, stage 3 (moderate) Discharge Plan: Home Plan to discharge in: 24 Hours - Code Status/Comfort Care Code Status Assessed: No Code Status: Full Code Physician Review: Patient Assessed, Agree with Above Assessment and Plan Critical Care: Yes Time Spent Managing Pts Care (In Minutes): 25
[2017-07-23] MEDS: FAMOTIDINE 20 MG/2 ML VIAL IV SCH ×2 (08:53→20:50)
[2017-07-23] MEDS: THIAMINE 200 MG/2 ML INJ IVP SCH (08:53)
[2017-07-23] MEDS: FENTANYL CITR 100 MCG/2 ML IV PRN ×3 (10:35→20:50)
[2017-07-23] MEDS ORDERED: MAGNESIUM SULFATE 1 gm IVPB 1 GM/100 ML BAG IV ONE (11:21)
[2017-07-23] MEDS ORDERED: DEXTROSE 10%-WATER 500 ML IV SCH (11:30)
[2017-07-23] MEDS: ALBUMIN HUMAN 25% 12.5 GM, FUROSEMIDE 100 MG in NA CHLORIDE 0.9% 40 ML IV SCH ×3 (11:53→19:57)
[2017-07-23] MEDS: LORazepam 2 MG/ML VIAL IV PRN ×3 (11:54→19:28)
[2017-07-23] MEDS ORDERED: ALBUMIN HUMAN 25% 12.5 GM, FUROSEMIDE 100 MG in NA CHLORIDE 0.9% 40 ML IV SCH (12:00)
[2017-07-23] MEDS ORDERED: KCL 20 MEQ/100 mL IVPB 20 MEQ/100 ML BAG IV SCH (12:00)
[2017-07-23] MEDS: VITAL HP 1,000 ML BOT RTH SCH (12:27)
[2017-07-23] MEDS: MIDAZOLAM HCL 2 MG/2 ML INJ IV PRN ×3 (12:48→20:50)
[2017-07-23] MEDS ORDERED: NA CHLORIDE 0.9% 0 ML ONE (13:20)
[2017-07-23] MEDS: HALOPERIDOL LACT 5 MG/ML INJ IV PRN (19:28)
[2017-07-24] MEDS: Meropenem 500 MG in NA CHLORIDE 0.9% 100 ML IV SCH ×3 (00:18→21:15)
[2017-07-24] MEDS: FENTANYL CITR 100 MCG/2 ML IV PRN ×4 (00:21→21:16)
[2017-07-24] MEDS: MIDAZOLAM HCL 2 MG/2 ML INJ IV PRN ×3 (00:21→10:47)
[2017-07-24] MEDS: HALOPERIDOL LACT 5 MG/ML INJ IV PRN (02:15)
[2017-07-24] MEDS: LORazepam 2 MG/ML VIAL IV PRN ×2 (02:17→17:32)
[2017-07-24] MEDS: MIDODRINE HCL 5 MG TABLET FT SCH ×3 (05:45→21:15)
[2017-07-24] MEDS: ALBUMIN HUMAN 25% 12.5 GM, FUROSEMIDE 100 MG in NA CHLORIDE 0.9% 40 ML IV SCH ×6 (05:49→22:55)
[2017-07-24 06:26] LABS: Absolute Lymphocytes (CBC) 0.9 K/uL (0.7-4.9); Absolute Monocytes 1.4 K/uL (0.1-1.3); Absolute Neutrophil 7.7 K/uL (1.8-8.0); Basophils % 0.8 % (0-1.3); Hematocrit 33.3 % (39.6-49.0); Lymphocytes % 9.3 % (15.3-44.8); MCH 26.3 pg (27.0-35.0); MCV 81.4 fL (80-100); Monocytes % 13.9 % (3.3-12.3); RBC Red Blood Cell Count 4.09 M/uL (4.33-5.43)
--- NOTE | 2017-07-24 06:31 | PN ---
Date of Progress Note: 07/23/2017 Subjective: The patient still on vent, having anasarca. The patient had multiple episodes of hypogl ycemia, started on D5 0.5 at 75. Physical Examination: Vital Signs: When I saw the patient, blood pressure of 98/80, pulse of 88. Chest: Crackles bilateral. Heart: S1, S2. Regular. Systolic murmur. Abdomen: Soft, nontender. Extremities: +3 edema. Laboratory Data: WBC of 8.6, H and H 10.4/33, platelets of 102, sodium 130, potassium 3.2, bicarb 23 , BUN 38, creatinine 2.8, calcium 8.2, phosphatase 3.8, magnesium 1.8, total bilirubin 11.9, and AST and ALT elevated. Current Medications: 1.D5 0.5 at 75. 2.Meropenem. 3.Midodrine. 4.Midazolam. Assessment And Plan: 1.Acute kidney injury secondary to cardiorenal/hepatorenal, oliguric over volume. I am going to sta rt the patient on Lasix drip and we will monitor. 2.Change IV fluid to D10 unless the patient started on tube feeding to be discontinued. 3.I am going to follow up the workup. It is hard for me to differentiate between his hepatorenal an d cardiorenal for the time being, but given the respiratory distress, I am going to treat as cardiore nal. 4.If kidney function continue to deteriorate, the patient may need renal replacement therapy. 5.Given significant proteinuria, I am going to quantify the urine and I will send for full serology and we will follow up the patient. 6.Respiratory failure. We will try to establish better volume control. We will follow up with Pulotilia buenrostroary. 7.Hypertension, currently hypotension. We will start Lasix drip. Continue midodrine. 8.Hypokalemia. Hypomagnesemia. We will supplement. Potassium going to be supplemented cautiously given the degree of kidney function. Case discussed with Dr. Sargent and discussed with primary nursing staff. Time spend 40 minutes. HARSHA Voice ID: [id number] Report ID: [id number]
[2017-07-24 07:14] LABS: Albumin 2.8 g/dL (3.2-5.5); Magnesium 1.7 mg/dL (1.8-2.5); Phosphorus 4.3 mg/dL (2.5-4.3); Potassium 3.7 mEq/L (3.6-5.0); Protein, Total 6.2 g/dL (6.0-8.3); Thyroid Stimulating Hormone 4.51 uIU/mL (0.34-5.60)
[2017-07-24 07:17] LABS: Bilirubin Total 15.1 mg/dL (0.3-1.2)
[2017-07-24 08:37] LABS: UR CREAT 69.3 mg/dL
--- NOTE | 2017-07-24 08:49 | CON ---
Date of Consultation: 07/23/2017 Reason For Consultation: Congestive heart failure. History Of Present Illness: Mr. Rodrigues is a 66-year-old white male. He is known to have chronic syst olic congestive heart failure. He is status post AICD and biventricular pacemaker. He has a history of colon cancer, hypertension, dyslipidemia, and has had a history of . He came in with c ongestive heart failure requiring intubation. He is morbidly obese at 350 pounds. . Amy ins slightly hypotensive. Echocardiogram showed an ejection fraction . Doppler was negati ve. Chest x-ray showed CHF. EKG is paced rhythm. Abdominal sonogram showed fatty liver. The patie nt is saturating well. Kidney function has worsened to . Allergies: HE IS ALLERGIC TO IODINE. Medications: At home include inhalers, aldactone, Cialis, amiodarone, aspirin, Wellbutrin, Coreg, La six, Synthroid, mexiletine, Entresto, Protonix, potassium, and Zocor. Review of Systems: Negative. Social History: Negative. Family History: Negative. Physical Examination: Vital Signs: He weighs 350 pounds, intubated. Blood pressure is 93/55, paced rhythm. HEENT: Negative. Neck: Supple. No lymphadenopathy or thyromegaly. JVD 3 cm. Chest: Revealed rales throughout. Cardiac: Revealed paced rhythm with S3 gallop. Abdomen: Obese. Extremities: Revealed no clubbing, cyanosis, or edema. Laboratory Data: Creatinine was 2.89. . Impression And Plan: 1.Acute exacerbation of chronic systolic congestive heart. 2.Mild anemia. 3.Renal insufficiency. 4. . 5.Shock liver. 6.AST and AST elevation. 7.Status post AICD and pacemaker. 8. . 9.History of atrial fibrillation. 10.History of gastroesophageal reflux disease. 11.History of dyslipidemia. 12.Chronic obstructive pulmonary disease. 13. . 14.History of colon cancer. 15.History of . 16.Consider low-dose dopamine and maybe renal consult. Otherwise, I will continue his pr esent regimen. congestive heart failure may be appropriate as well. I will discuss the case further with Dr. Sargent. JORGE L Voice ID: [id number] Report ID: [id number]
[2017-07-24 08:51] LABS: UR CREAT 55.4 mg/dL; Urine Protein/Creatinine Ratio 0.74 (<0.15)
[2017-07-24 09:36] LABS: Anisocytosis 2+; Blood Morphology Comment NOTED (NOT SEEN); Platelet Estimate DECR; Poikilocytosis 1+; Target Cells 2+
--- NOTE | 2017-07-24 10:06 | P.PN ---
Subjective Date of Service: 07/24/17 Primary Care Provider: Adeola Rizzo Chief Complaint: Respiratory failure Subjective: No new changes (patient is not tolerating weaning) Review of Systems is unable to be obtained Physical Examination - Vital Signs Temperature: 97.5 F Blood Pressure: 118/69 Pulse: 105 Respirations: 13 Pulse Ox (%): 95 - Physical Exam General: Alert, In no apparent distress HEENT: Atraumatic, PERRLA, EOMI Neck: Supple, JVD not distended Respiratory: Clear to auscultation bilaterally, Normal air movement Cardiovascular: Regular rate/rhythm, Normal S1 S2 Gastrointestinal: Normal bowel sounds, No tenderness Musculoskeletal: No tenderness Integumentary: No rashes Neurological: Normal speech, Normal tone, Normal affect Lymphatics: No axilla or inguinal lymphadenopathy Assessment & Plan - Problems (Diagnosis) (1) Sepsis Onset Date: 07/22/17 Current Visit: Yes Status: Acute Plan: Start vancomycin and meropenem. Cultures are pending. Will continue the d5w. repeated acuchecks. Will be gentle with the fluids due to his history of chf. Qualifiers: Sepsis type: sepsis due to unspecified organism Qualified Code(s): A41.9 - Sepsis, unspecified organism (2) Shock liver Onset Date: 07/22/17 Current Visit: Yes Status: Acute Plan: Ultrasound pending to rule out obstructions. Fatty liver on Ultrasound. The patients liver profile is worsening. Will consult Dr. Tejeda (3) CHF (congestive heart failure) Onset Date: 07/22/17 Current Visit: Yes Status: Chronic Plan: Patient has a history of severe chf. will continue monitoring his functions Gentle hydration. Qualifiers: Qualified Code(s): I50.21 - Acute systolic (congestive) heart failure (4) Renal failure (ARF), acute on chronic Onset Date: 07/22/17 Current Visit: Yes Status: Acute Plan: worsening function. Normal ultrasound. Nephrology is correcting his electolyte imbalance. Qualifiers: Acute renal failure type: with acute renal cortical necrosis Chronic kidney disease stage: stage 3 (moderate) Qualified Code(s): N17.1 - Acute kidney failure with acute cortical necrosis; N18.3 - Chronic kidney disease, stage 3 (moderate); N18.3 - Chronic kidney disease, stage 3 (moderate) Discharge Plan: Home Plan to discharge in: Greater than 2 days - Code Status/Comfort Care Code Status Assessed: No Code Status: Full Code Physician Review: Patient Assessed, Agree with Above Assessment and Plan Critical Care: Yes Time Spent Managing Pts Care (In Minutes): 25
[2017-07-24] MEDS: FAMOTIDINE 20 MG/2 ML VIAL IV SCH ×2 (10:15→21:16)
[2017-07-24] MEDS: THIAMINE 200 MG/2 ML INJ IVP SCH (10:15)
[2017-07-24 13:17] LABS: HBsAG Nonreactive (Nonreactive); Hepatitis A IgM Antibody Nonreactive
[2017-07-24] MEDS ORDERED: ALBUMIN HUMAN 25% 12.5 GM, FUROSEMIDE 100 MG in NA CHLORIDE 0.9% 40 ML IV SCH (14:30)
--- NOTE | 2017-07-24 15:43 | PN ---
Mr. Rodrigues remains intubated, encephalopathic, fulminant liver failure. His bilirubin is increasing. His liver function tests are increasing. On imaging studies, he seems to have fatty liver. Serolog ies have not had enough time to come back. We cannot say he has negative serologies, but with fulmin ant liver failure exacerbating underlying heart failure and worsening renal failure, we would have to say his prognosis is extremely poor. There are not any things likely to reverse his condition. Cer tainly, the cardiac condition cannot be improved by trying anything like a cardiac cath or emergency bypass surgery. He seems to have well documented and optimally treated heart condition. At the time , there are not any new medications I would recommend adding to help his heart work better. His live r failure is probably a combination of fatty liver and heart failure and probably something else in a ddition, and my guess is that it is some kind of toxic insult. Overall, the prognosis is very poor. SH/MODL Voice ID: [id number] Report ID: [id number]
--- NOTE | 2017-07-24 16:58 | P.PN ---
Subjective Date of Service: 07/25/17 Primary Care Provider: Adeola Rizzo Chief Complaint: Respiratory failure No change she is unresponsive off propofol drip tolerating tube feeds bili Segura has worsened Review of Systems is unable to be obtained Physical Examination - Vital Signs Temperature: 97.5 F Blood Pressure: 118/92 Pulse: 111 Respirations: 18 Pulse Ox (%): 95 - Physical Exam General: Unresponsive HEENT: Atraumatic Neck: Supple Respiratory: Clear to auscultation bilaterally, Diminished Cardiovascular: Edema (Bilateral edema) Assessment & Plan - Problems (Diagnosis) (1) Respiratory failure Onset Date: 07/22/17 Current Visit: Yes Status: Acute Plan: Patient's condition is stable he is unresponsive on a ventilator tolerating tube feeds the Segura has worsened cultures are negative liver function tests have improved his auto anti coagulated renal function stable patient has dilated cardiomyopathy overall prognosis is very poor due to multiorgan failure discuss with Dr. morgan corley. Consider DNR prognosis very poor Qualifiers: Chronicity: acute (2) Abnormal liver function test Onset Date: 01/25/16 Current Visit: No Status: Acute Plan: Abnormal liver function tests still jaundiced the Segura elevated urine toxicology screen is negative his liver function tests are beginning to improve start tube feeds cultures negative. Vancomycin renal ultrasound nondiagnostic Physician Review: Patient Assessed, Agree with Above Assessment and Plan
--- NOTE | 2017-07-24 19:44 | P.PN ---
Have met with the family. Adeola Rizzo the PCP and I have met with the Larisa Rodrigues. Son Yazan Lewis and his . Have discussed his prognosis. He has had fátima improvement in his liver or renal function. Have not had any sucess in weaning him off the vent. The son stated he did want to be a DNR. feels he had poor quality of life before this admission. They all agreed on DNR status. We will continue all treatment. However in the event of code situation, we will not code him. Will continue to try weaning him. In the case of the worse, the son Yazan Lewis would like to be called first([phone]). So his mother does not have to hear the news alone over the phone. This is very reasonable. Will comply with his wishes.
--- NOTE | 2017-07-24 19:52 | PN ---
Date of Progress Note: 07/24/2017 Subjective: The patient is still intubated. Yesterday we started the patient on Lasix drip. The pa alen started having good urine output. Blood pressure been stabilized. No pressor. Laboratory Data: The patient WBC 10.2, H and H 10.8/33.3, platelets of 78. Sodium 135, potassium 3. 7, bicarb 24, BUN 42, creatinine 2.85, GFR stabilized 122, calcium 8.4, phosphorus 4.3, magnesium 1.7 . Total bilirubin of 15. AST, ALT still elevated. Albumin 2.8. PTH 157. Protein creatinine is 0. 7. Vanc trough of 22. DANTE is still pending. Hepatitis B surface antigen was negative. Core antibo dy was negative. Medications: Current medications the patient on include: 1.Meropenem 500 q.8 hours. 2.Midodrine. 3.Lasix drip. 4.Haloperidol. 5.Midazolam. 6.Pepcid. 7.Thiamin. Assessment And Plan: 1.Acute kidney injury secondary to cardiorenal. Could not differentiate between cardiorenal or hepa torenal given the condition. I am going to go ahead and continue Lasix drip. We will increase the L asix drip to 20 mg, and we will monitor the patient. 2.Respiratory failure. Over volume. Continue diuresis. 3.Pneumonia. I going to go ahead and change meropenem to q.12 hours. We will follow up. 4.Liver failure, possible secondary to congestion. We will follow up with GI. 5.Secondary hyperparathyroid. Parathyroid hormone elevated. Both calcium and phosphorus on the goa l. We will continue to monitor. 6.Hypomagnesemia. We will supplement. Case discussed with Dr. Sargent and discussed with primary nurse. DANII/EARLENE Voice ID: [id number] Report ID: [id number]
[2017-07-25] MEDS: ALBUMIN HUMAN 25% 12.5 GM, FUROSEMIDE 100 MG in NA CHLORIDE 0.9% 40 ML IV SCH ×6 (01:50→19:32)
[2017-07-25] MEDS: MIDAZOLAM HCL 2 MG/2 ML INJ IV PRN (01:50)
[2017-07-25] MEDS: HALOPERIDOL LACT 5 MG/ML INJ IV PRN (01:50)
[2017-07-25] MEDS: LORazepam 2 MG/ML VIAL IV PRN ×4 (04:56→21:31)
[2017-07-25 05:30] LABS: Albumin 3.1 g/dL (3.2-5.5); Magnesium 1.7 mg/dL (1.8-2.5); Phosphorus 3.6 mg/dL (2.5-4.3); Potassium 3.3 mEq/L (3.6-5.0)
[2017-07-25] MEDS: MIDODRINE HCL 5 MG TABLET FT SCH ×3 (06:05→21:31)
[2017-07-25] MEDS: FENTANYL CITR 100 MCG/2 ML IV PRN ×2 (07:45→14:18)
--- NOTE | 2017-07-25 08:24 | P.PN ---
Subjective Date of Service: 07/25/17 Primary Care Provider: Adeola Rizzo Chief Complaint: Respiratory failure Condition stable patient is unresponsive patient is not on any vasopressors or sedation Review of Systems is unable to be obtained Physical Examination - Vital Signs Temperature: 97.5 F Blood Pressure: 118/92 Pulse: 111 Respirations: 18 Pulse Ox (%): 95 - Physical Exam General: Unresponsive Respiratory: Clear to auscultation bilaterally Cardiovascular: Edema (Still has bilateral edema) Gastrointestinal: Normal bowel sounds Assessment & Plan - Problems (Diagnosis) (1) Respiratory failure Onset Date: 07/22/17 Current Visit: Yes Status: Acute Plan: No change in patient's condition his oxygenation is satisfactory the problem is is mental status I suspect that he has hepatic encephalopathy from his underlying renal insufficiency ever function panel ordered again he including an ammonia level may need some lactulose vital signs stable cultures negative patient is on thymine tolerating tube feeds renal function is improving Qualifiers: Chronicity: acute (2) Abnormal liver function test Onset Date: 01/25/16 Current Visit: No Status: Acute Plan: Abnormal liver function tests still jaundiced the Segura elevated urine toxicology screen is negative his liver function tests are beginning to improve start tube feeds cultures negative. Vancomycin renal ultrasound nondiagnostic Physician Review: Patient Assessed, Agree with Above Assessment and Plan
[2017-07-25] MEDS: Meropenem 500 MG in NA CHLORIDE 0.9% 100 ML IV SCH ×2 (08:28→21:30)
[2017-07-25] MEDS: FAMOTIDINE 20 MG/2 ML VIAL IV SCH ×2 (08:29→21:31)
[2017-07-25] MEDS: THIAMINE 200 MG/2 ML INJ IVP SCH (08:29)
--- NOTE | 2017-07-25 08:58 | RAD REPORT ---
EXAM DESCRIPTION: Yoana Single View07/25/2017 6:05 am CLINICAL HISTORY: Chest pain COMPARISON: July 22 FINDINGS: Endotracheal and nasogastric tubes are in good position. The heart is enlarged. Pacemaker leads are in place Mild to moderate bilateral pulmonary opacities probably represent pulmonary edema. IMPRESSION: Mild to moderate pulmonary edema
--- NOTE | 2017-07-25 09:11 | P.PN ---
Subjective Date of Service: 07/25/17 Primary Care Provider: Adeola Rizzo Chief Complaint: Respiratory failure Subjective: No new changes (patient is off sedation. However not waking up) Review of Systems is unable to be obtained Physical Examination - Vital Signs Temperature: 97.5 F Blood Pressure: 118/92 Pulse: 111 Respirations: 18 Pulse Ox (%): 95 - Physical Exam General: In no apparent distress, Unresponsive (intubated. Off sedation.) HEENT: Atraumatic, PERRLA, EOMI Neck: Supple, JVD not distended Respiratory: Clear to auscultation bilaterally, Normal air movement Cardiovascular: Regular rate/rhythm, Normal S1 S2 Gastrointestinal: Normal bowel sounds, No tenderness Musculoskeletal: No tenderness Integumentary: No rashes Neurological: Normal speech, Normal tone, Normal affect Lymphatics: No axilla or inguinal lymphadenopathy Assessment & Plan - Problems (Diagnosis) (1) Respiratory failure Onset Date: 07/22/17 Current Visit: Yes Status: Acute Plan: Patient is not weaning off the ventilator. Better diuresis. However he is not waking up. Possible hepatic ecephalopathy as stated by Dr. Umanzor. Have discussed code status with his family last night. Will speak with them again about possible terminal wean. This is day 5 of him being on a vent. At day 7 will discuss a terminal wean vs. rat exterminator placement. Qualifiers: Chronicity: acute (2) Shock liver Onset Date: 07/22/17 Current Visit: Yes Status: Acute Plan: Ultrasound pending to rule out obstructions. Fatty liver on Ultrasound. The patients liver profile is worsening. Will consult Dr. Tejeda (3) CHF (congestive heart failure) Onset Date: 07/22/17 Current Visit: Yes Status: Chronic Plan: Patient has a history of severe chf. will continue monitoring his functions Gentle hydration. Qualifiers: Qualified Code(s): I50.21 - Acute systolic (congestive) heart failure (4) Renal failure (ARF), acute on chronic Onset Date: 07/22/17 Current Visit: Yes Status: Acute Plan: worsening function. Normal ultrasound. Nephrology is correcting his electolyte imbalance. Qualifiers: Acute renal failure type: with acute renal cortical necrosis Chronic kidney disease stage: stage 3 (moderate) Qualified Code(s): N17.1 - Acute kidney failure with acute cortical necrosis; N18.3 - Chronic kidney disease, stage 3 (moderate); N18.3 - Chronic kidney disease, stage 3 (moderate) (5) Sepsis Onset Date: 07/22/17 Current Visit: Yes Status: Acute Plan: Start vancomycin and meropenem. Cultures are pending. Will continue the d5w. repeated acuchecks. Will be gentle with the fluids due to his history of chf. Qualifiers: Sepsis type: sepsis due to unspecified organism Qualified Code(s): A41.9 - Sepsis, unspecified organism Discharge Plan: Home Plan to discharge in: Greater than 2 days - Code Status/Comfort Care Code Status Assessed: No Code Status: Do Not Resuscitate Physician Review: Patient Assessed, Agree with Above Assessment and Plan Critical Care: No Time Spent Managing Pts Care (In Minutes): 25
[2017-07-25 09:39] LABS: Bilirubin Direct 10.5 mg/dL (0-0.2); Protein, Total 6.2 g/dL (6.0-8.3)
[2017-07-25 09:41] LABS: Bilirubin Total 17.1 mg/dL (0.3-1.2)
[2017-07-25] MEDS ORDERED: D50W 25 GM/50 ML SYRINGE IV PRN (10:22)
[2017-07-25] MEDS ORDERED: GLUCAGON 1 MG/VIAL IM PRN (10:22)
[2017-07-25] MEDS: INSULIN -REGULAR HUMAN 50 UNIT/0.5 ML ML SQ SCH ×2 (11:59→17:30)
[2017-07-25] MEDS ORDERED: MAGNESIUM SULFATE 1 gm IVPB 1 GM/100 ML BAG IV ONE (12:30)
[2017-07-25] MEDS: KCL 20 MEQ/100 mL IVPB 20 MEQ/100 ML BAG IV SCH ×2 (13:49→15:37)
--- NOTE | 2017-07-25 15:22 | PN ---
Date of Progress Note: 07/25/2017 The patient is seen today on 07/25/2017. He is there for cardiogenic shock and sepsis. He has been made a DNR, remains on pressors, antibiotics. Have diuresed significantly, remains intubated. O2 sa turation is adequate on the ventilator. No changes in the therapies are recommended at this time. T he patient has very poor prognosis with end-stage renal disease, end-stage cardiomyopathy, hepatic sh ock. I will discuss the case further with Dr. Sargent. MORALES/MODL Voice ID: [id number] Report ID: [id number]
[2017-07-26] MEDS: ALBUMIN HUMAN 25% 12.5 GM, FUROSEMIDE 100 MG in NA CHLORIDE 0.9% 40 ML IV SCH ×2 (01:00→03:38)
--- NOTE | 2017-07-26 02:21 | PN ---
Date of Progress Note: 07/25/2017 Chief Complaint: Fluid overload, acute kidney injury secondary to cardiorenal syndrome. Subjective: The patient has nonoliguric urine output. The patient was found to have moderately severe to severe acute kidney injury. Creatinine level is 2.85, BUN 42. The patient is started on Lasix drip for treatment of cardiorenal syndrome, congestive heart failure, and anasarca. Renal function has not improved over last 24 hours. Creatinine level has increased from 1.74 to 2.85. Today, creatinine is 2.57. Urine output has increased in response to Lasix drip and Lasix drip dose will be weaned off over the next 10 hours. Review of Systems: The patient is intubated, cannot provide review of systems. Objective: Lungs: Coarse breath sounds bilaterally. Heart: S1, S2. Abdomen: Soft, benign. Extremities: Edema present in both legs. Laboratory Data: Hemoglobin 10.2, hematocrit 33.3, platelets 78. Sodium 137, potassium 3.3, chloride 102, CO2 28, BUN 45, creatinine 2.57, total bilirubin 17.1, magnesium 1.7, and phosphorus is 3.6. Impression And Plan: 1. Acute kidney injury, severe, nonoliguric associated with cardiorenal syndrome and congestive heart failure. Continue diuretic drip and adjust electrolyte replacement. 2. Hypokalemia. Potassium replacement was ordered. 3. Hypomagnesemia. Magnesium was replaced with IV magnesium sulfate. Monitor magnesium and electrolyte panel. 4. Liver failure, possible shock liver and liver failure secondary to congestive heart failure. Further workup per Gastroenterology. 5. Secondary hyperparathyroidism. Monitor parathyroid hormone level and continue to monitor calcium and phosphorus level. At this point, phosphorous level and calcium are at the target range. 6. Respiratory failure, volume overload. The patient is intubated. 7. Pneumonia. Continue antibiotics with renally adjusted dose. I spent total 36 min including 26 min to coordinate care plan. MATHEW/EARLENE Voice ID: [id number] Report ID: [id number] MONIQUE
[2017-07-26] MEDS: LORazepam 2 MG/ML VIAL IV PRN ×4 (03:50→20:25)
[2017-07-26] MEDS: INSULIN -REGULAR HUMAN 50 UNIT/0.5 ML ML SQ SCH ×5 (05:46→23:34)
[2017-07-26 06:13] LABS: Albumin 3.3 g/dL (3.2-5.5); Magnesium 1.7 mg/dL (1.8-2.5); Phosphorus 3.3 mg/dL (2.5-4.3); Potassium 3.3 mEq/L (3.6-5.0)
[2017-07-26] MEDS ORDERED: POTASSIUM CL 40 MEQ in NA CHLORIDE 0.9% 500 ML IV SCH (08:00)
[2017-07-26] MEDS ORDERED: MAGNESIUM SULFATE 1 gm IVPB 1 GM/100 ML BAG IV ONE (08:00)
--- NOTE | 2017-07-26 08:22 | RAD REPORT ---
EXAM DESCRIPTION: RAD - Chest Single View - 07/26/2017 6:51 am CLINICAL HISTORY: Respiratory failure. COMPARISON: 07/25/2017 FINDINGS: Portable technique limits examination quality. Tip of the ET tube is above the paulette. Enteric tube descends in the stomach. The lungs are underinfl ated with mild pulmonary edema suspected. The heart is moderately enlarged, accentuated by portable t echnique.
[2017-07-26 08:38] LABS: Albumin 3.4 g/dL (3.2-5.5); Protein, Total 6.6 g/dL (6.0-8.3)
--- NOTE | 2017-07-26 08:50 | P.PN ---
Subjective Date of Service: 07/26/17 Primary Care Provider: Adeola Rizzo Chief Complaint: Respiratory failure Will be out of town this weekend. Hospitalist covering Review of Systems is unable to be obtained Physical Examination - Vital Signs Temperature: 98.7 F Blood Pressure: 108/82 Pulse: 109 Respirations: 14 Pulse Ox (%): 97 - Physical Exam General: In no apparent distress, Unresponsive, Other (Jaundiced) HEENT: Atraumatic, PERRLA, EOMI Neck: Supple, JVD not distended Respiratory: Clear to auscultation bilaterally, Normal air movement Cardiovascular: Regular rate/rhythm, Normal S1 S2 Gastrointestinal: Normal bowel sounds, No tenderness Musculoskeletal: No tenderness Integumentary: No rashes Neurological: Normal speech, Normal tone, Normal affect Lymphatics: No axilla or inguinal lymphadenopathy - Studies Microbiology Data (last 24 hrs): 07/21/17 03:50 Blood - Blood Aerobic Blood Culture - Final No growth in 5 days. 07/21/17 03:50 Blood - Blood Anaerobic Blood Culture - Final No growth in 5 days. 07/21/17 03:50 Blood - Blood Aerobic Blood Culture - Final No growth in 5 days. Assessment & Plan - Problems (Diagnosis) (1) Respiratory failure Onset Date: 07/22/17 Current Visit: Yes Status: Acute Plan: Patient is not weaning off the ventilator. Better diuresis. However he is not waking up. Possible hepatic ecephalopathy as stated by Dr. Umanzor. Have discussed code status with his family last night. Will speak with them again about possible terminal wean. This is day 5 of him being on a vent. At day 7 will discuss a terminal wean vs. termite technician placement. Qualifiers: Chronicity: acute (2) Shock liver Onset Date: 07/22/17 Current Visit: Yes Status: Acute Plan: Ultrasound pending to rule out obstructions. Fatty liver on Ultrasound. The patients liver profile is worsening. Will consult Dr. Tejeda (3) CHF (congestive heart failure) Onset Date: 07/22/17 Current Visit: Yes Status: Chronic Plan: Patient has a history of severe chf. will continue monitoring his functions Gentle hydration. Patients and family states he seems like he wants to , or he has given up. Will discuss a terminal wean with them on Saturday, unless he gets extubated Qualifiers: Qualified Code(s): I50.21 - Acute systolic (congestive) heart failure (4) Renal failure (ARF), acute on chronic Onset Date: 07/22/17 Current Visit: Yes Status: Acute Plan: worsening function. Normal ultrasound. Nephrology is correcting his electolyte imbalance. Qualifiers: Acute renal failure type: with acute renal cortical necrosis Chronic kidney disease stage: stage 3 (moderate) Qualified Code(s): N17.1 - Acute kidney failure with acute cortical necrosis; N18.3 - Chronic kidney disease, stage 3 (moderate); N18.3 - Chronic kidney disease, stage 3 (moderate) (5) Sepsis Onset Date: 07/22/17 Current Visit: Yes Status: Acute Plan: Start vancomycin and meropenem. Cultures are pending. Will continue the d5w. repeated acuchecks. Will be gentle with the fluids due to his history of chf. Qualifiers: Sepsis type: sepsis due to unspecified organism Qualified Code(s): A41.9 - Sepsis, unspecified organism Discharge Plan: Home - Code Status/Comfort Care Code Status Assessed: Yes Code Status: Do Not Resuscitate Physician Review: Patient Assessed, Agree with Above Assessment and Plan Critical Care: Yes Time Spent Managing Pts Care (In Minutes): 20
[2017-07-26] MEDS ORDERED: FUROSEMIDE 40 MG/4 ML VIAL IV SCH (09:00)
[2017-07-26 09:15] LABS: Bilirubin Direct 14.1 mg/dL (0-0.2)
[2017-07-26 09:17] LABS: Bilirubin Total 20.5 mg/dL (0.3-1.2)
[2017-07-26] MEDS: MIDODRINE HCL 5 MG TABLET FT SCH ×3 (09:35→21:12)
[2017-07-26] MEDS: THIAMINE 200 MG/2 ML INJ IVP SCH (09:37)
[2017-07-26] MEDS: FAMOTIDINE 20 MG/2 ML VIAL IV SCH ×2 (09:37→20:25)
[2017-07-26] MEDS: Meropenem 500 MG in NA CHLORIDE 0.9% 100 ML IV SCH ×2 (09:42→20:24)
--- NOTE | 2017-07-26 13:45 | PN ---
Subjective: Mr. Rodrigues remains obtunded, intubated. Bilirubin continues to go up and I am really not able to say exactly what the impression is of our GI service. He has been seen by the GI service. He does not seem to have hepatitis. He seems to have severe hepatocellular dysfunction with INR of 4 .23, not even on vitamin K antagonists, so I am not sure if they think it is obstruction or hepatocel lular. I think his prognosis is very poor. He has multiorgan system failure including central nervo us system failure. I do not have any changes I would recommend to his cardiac therapy at this time. DENICE/EARLENE Voice ID: [id number] Report ID: [id number]
--- NOTE | 2017-07-26 15:56 | RAD REPORT ---
EXAM DESCRIPTION: VASExtrem Venous W Compress Bil07/26/2017 3:47 pm CLINICAL HISTORY: Bilateral leg swelling COMPARISON: 2016 FINDINGS: The common femoral, superficial femoral, popliteal and posterior tibial veins bilaterally are compressible and demonstrate augmentation. Doppler demonstrates good flow. IMPRESSION: No evidence of deep venous thrombosis involving either lower extremity.
--- NOTE | 2017-07-26 16:02 | RAD REPORT ---
EXAM DESCRIPTION: VASExtrem Venous W Compress Bil07/26/2017 3:47 pm CLINICAL HISTORY: Right arm swelling COMPARISON: None FINDINGS: Acute thrombus is present throughout the right cephalic vein. Acute thrombus is also seen within the proximal left brachial vein. The remainder of the veins bilaterally generally compressible and demonstrate augmentation. Doppler d emonstrates good flow. IMPRESSION: Acute thrombus throughout the right cephalic vein and proximal left brachial veins Mary Jo from the ICU was notified 3:57 p.m. July 26, 2017
[2017-07-26] MEDS: FUROSEMIDE 40 MG/4 ML VIAL IV SCH ×2 (17:49→23:34)
[2017-07-26] MEDS: VITAL HP 1,000 ML BOT RTH SCH (17:50)
[2017-07-26 19:27] LABS: Albumin, (SPE) 3.1 g/dL (3.8-4.8); Alpha-1-Globulins 0.3 g/dL (0.2-0.3); Alpha-2-Globulins 0.5 g/dL (0.5-0.9); Gamma Globulins 1.4 g/dL (0.8-1.7); INTERPRETATION REPORT
[2017-07-26] MEDS: FENTANYL CITR 100 MCG/2 ML IV PRN (20:25)
--- NOTE | 2017-07-26 20:26 | PN ---
Date of Progress Note: 07/26/2017 Chief Complaint: Fluid overload, acute kidney injury secondary to cardiorenal syndrome, and acute tubular necrosis. History Of Present Illness: The patient has nonoliguric urine output. He was started on Lasix drip, and today he is on IV Lasix for treatment of congestive heart failure, cardiorenal syndrome, and anasarca. A lower and upper extremity edema has not changed significantly. He remains intubated. FiO2 is 35%. Review of Systems: The patient cannot provide review of systems. He remains intubated. Physical Examination: Lungs: Few crackles at bases. Heart: S1, S2. Abdomen: Soft, benign, obese. Extremity: Edema in upper and lower extremities. Laboratory Data: Hemoglobin 10.8, WBC 10.2, platelet count is [id number]. Chemistries showed sodium 142, potassium 3.3, chloride 101, CO2 32. BUN 50. Creatinine 2.20. Glucose 130. Total bilirubin is 20.5. Impression And Plan: 1. Acute kidney injury. Nonoliguric. Continue diuretics for treatment of anasarca. Renal function has not changed over last 24 hours. 2. Edema in upper and lower extremities. Plan is to check venous Doppler to rule out DVT. 3. Congestive heart failure, hypoxemic respiratory failure. The patient has multiorgan system failure, and he will continue on vent. Cardiology is conducting workup. The patient has elevated liver function tests, which appears to be hepatitis or shock liver. Further workup per primary team. 4. Continue antibiotics with renally adjusted dose. 5. Secondary hyperparathyroidism. Monitor parathyroid hormone level. Continue to check calcium and phosphorus level. 6. Liver failure. Possible shock liver. Liver failure secondary to congestive heart failure, hepatitis. Further workup per GI. 7. Hypomagnesemia, replacement with magnesium as needed. Monitor lab work daily. I spent total 36 min including 26 min to coordinate care plan. MATHEW/EARLENE Voice ID: [id number] Report ID: [id number] MTDD
[2017-07-26] MEDS: KCL 20 MEQ/100 mL IVPB 20 MEQ/100 ML BAG IV SCH ×2 (21:10→22:31)
--- NOTE | 2017-07-26 22:14 | PN ---
A 66-year-old male. Problem List: Increase in bilirubin up to 20, septic shock, congestive hepatopathy with very low eje ction fraction. In the past, the patient suffered ischemic hepatopathy. The patient is unresponsive, sedated, although he can response with some physical cues. I am not tania re of any history of abdominal pain, any history of hematemesis, or melena. He is being intubated an d also sedated. In the past, the patient was seen by Dr. Tejeda as an initial consult. In the interval, his biliru bin has been going up. Now it is 17-20, as a result I have been reconsulted. Physical Examination: General: Deeply icteric. He is intubated. Hemodynamic Parameters: Within acceptable range. Abdomen: Obese, soft, nontender, and nondistended. Hepatomegaly and splenomegaly cannot be palpated due to severe obesity. Neurologic: He is sedated. Diagnostic Data: Bilirubin is 20-17, approximately 40% is direct bilirubin, rest is indirect. AST, ALT are 2-3 times normal. Rest of the study is pending. Impression: As above. Plan And Recommendation: Given above, the patient's bilirubin and especially indirect hyperbilirubin emia, this is not due to biliary obstruction. In the past, his ultrasound was normal, normal biliary tree was noted. At this time, it is combined with septic hepatopathy with ischemic hepatopathy and lack of renal coleman kim. Congestive hepatopathy is also significant factor, therefore the patient has multiple reasons for hep atic failure at this time. Treatment unfortunately in this case will be not specific but supportive care that should give him. Treat the primary causes and the patient's prognosis will be dependent directly upon improvement or d eterioration of his primary causes. Given above at this time, I will sign off the case; however if you need our help, give us a call. CINDY/EARLENE Voice ID: [id number] Report ID: [id number]
[2017-07-27] MEDS: FENTANYL CITR 100 MCG/2 ML IV PRN ×5 (00:23→20:23)
[2017-07-27] MEDS: LORazepam 2 MG/ML VIAL IV PRN ×5 (00:25→20:23)
[2017-07-27] MEDS: MIDODRINE HCL 5 MG TABLET FT SCH ×3 (05:19→21:53)
[2017-07-27] MEDS: INSULIN -REGULAR HUMAN 50 UNIT/0.5 ML ML SQ SCH ×3 (05:19→17:15)
[2017-07-27 06:02] LABS: Albumin 2.9 g/dL (3.2-5.5); Magnesium 1.6 mg/dL (1.8-2.5); Phosphorus 2.8 mg/dL (2.5-4.3); Potassium 3.2 mEq/L (3.6-5.0)
[2017-07-27 06:23] LABS: Bilirubin Total 23.5 mg/dL (0.3-1.2)
[2017-07-27] MEDS ORDERED: MAGNESIUM SULFATE 1 gm IVPB 1 GM/100 ML BAG IV ONE (06:30)
[2017-07-27] MEDS: THIAMINE 200 MG/2 ML INJ IVP SCH (07:50)
[2017-07-27] MEDS: FUROSEMIDE 40 MG/4 ML VIAL IV SCH (07:50)
[2017-07-27] MEDS: FAMOTIDINE 20 MG/2 ML VIAL IV SCH ×2 (07:50→20:22)
[2017-07-27] MEDS: KCL 20 MEQ/100 mL IVPB 20 MEQ/100 ML BAG IV SCH ×3 (07:51→23:04)
[2017-07-27] MEDS: Meropenem 500 MG in NA CHLORIDE 0.9% 100 ML IV SCH ×2 (08:25→20:23)
--- NOTE | 2017-07-27 08:29 | RAD REPORT ---
EXAM DESCRIPTION: Yoana Single View07/27/2017 6:51 am CLINICAL HISTORY: Chest pain COMPARISON: July 26 FINDINGS: Endotracheal and nasogastric tubes are in good position. Mild bilateral pulmonary opacities are present. The heart is moderately enlarged. Pacemaker leads are in place IMPRESSION: Mild bilateral pulmonary opacities without significant change
[2017-07-27] MEDS ORDERED: POTASSIUM CL 40 MEQ in NA CHLORIDE 0.9% 500 ML IV SCH ×2 (09:00→22:00)
--- NOTE | 2017-07-27 10:49 | P.PN ---
Subjective Date of Service: 07/27/17 Primary Care Provider: Adeola Rizzo Chief Complaint: Respiratory failure Patient is not doing well is jaundice is worsening he does have multiple areas of deep venous thrombosis unresponsive Review of Systems is unable to be obtained Physical Examination - Vital Signs Temperature: 98.3 F Blood Pressure: 129/83 Pulse: 111 Respirations: 16 Pulse Ox (%): 96 - Physical Exam General: Unresponsive, Other Respiratory: Clear to auscultation bilaterally Cardiovascular: Edema (Significant edema) Gastrointestinal: Hypoactive Assessment & Plan - Problems (Diagnosis) (1) Respiratory failure Onset Date: 07/22/17 Current Visit: Yes Status: Acute Plan: Respiratory failure patient unresponsive chest x-ray shows some bilateral changes although is only requiring 35% oxygen no evidence of biliary outlet obstruction prognosis is very poor Dc vancomycin all his blood cultures are negative severely depressed ejection fraction Qualifiers: Chronicity: acute (2) Abnormal liver function test Onset Date: 01/25/16 Current Visit: No Status: Acute Plan: Abnormal liver function tests AST ALT improving however is bilirubin has gotten worse Physician Review: Patient Assessed, Agree with Above Assessment and Plan
[2017-07-27] MEDS: VITAL AF 1,000 ML BOT FT SCH (11:01)
[2017-07-27] MEDS ORDERED: FUROSEMIDE 100 MG in NA CHLORIDE 0.9% 90 ML IV SCH (12:00)
[2017-07-27] MEDS: ALBUMIN HUMAN 25% 50 ML IV SCH ×3 (12:38→20:22)
[2017-07-27 12:43] LABS: Protime INR 2.09
--- NOTE | 2017-07-27 13:01 | PN ---
Mr. Rodrigues remains in no significant hemodynamic distress. His creatinine is improving somewhat. Maury noriega's creatinine is 1.83. Bilirubin is even higher than it has been. Liver transaminases are lower. He has not had an INR in a few days. I would wonder if it is able to improve any. In any event he has severe hepatocellular dysfunction, very likely it is due to his underlying heart disease. There could also be several other things, although viral hepatitis has been effectively ruled out. He has been on numerous drugs and mexiletine is one that can have hepatic consequences. He is no longer rec eiving that of course. Overall, Mr. Rodrigues's prognosis is very poor. He is not waking up at all. DENICE/MODL Voice ID: [id number] Report ID: [id number]
--- NOTE | 2017-07-27 15:22 | PN ---
The patient is Dr. Sargent's patient, however, hospital service was covering for him over the weekend w hile he was out of town. The patient still intubated, sedated, very much nonresponsive, jaundiced. Review of Systems: Limited due to patient's medical condition. Physical Examination: Vital Signs: Temperature 98.3, heart rate 111, blood pressure 129/83, respirations 16, O2 96% on ET tube. General: Awake, confused, nonresponsive, ill-appearing, jaundiced, morbidly obese, elderly male. BM I 48.5. CV: S1, S2. Peripheral pulses weak bilaterally. Respiratory: Diminished breath sounds. No wheezing. Gastrointestinal: Abdomen is soft, nondistended. Positive bowel sounds. Extremities: No clubbing, cyanosis. 2+ peripheral edema. Neuro: The patient opens his eyes, however, does not follow any commands. Moves all 4 extremities. Laboratory Data: Sodium 146, potassium 3.2, chloride 104, CO2 34, BUN 55, creatinine 1.83, glucose 1 34, calcium 8.5, phosphorus 2.8, magnesium 1.6, total bilirubin 23.5, direct bilirubin 15, AST 94, AL T 118. The blood cultures no growth, final sputum cultures, yeast, normal michelle. Chest x-ray, perso roni reviewed, shows mild bilateral pulmonary opacities without significant change. Assessment: A 66-year-old male with: 1.Acute respiratory failure on mechanical ventilation secondary to congestive heart failure, hepatic encephalopathy. The patient on day 6 of mechanical ventilation. Plan is for decision on Saturday, da y 7 for either terminal wean versus LTAC placement. 2.Shock liver. Fatty liver found on ultrasound. GI on board, likely secondary to septic hepatopath y with ischemic hepatopathy and lack of renal clearance according to GI. May also be secondary to co ngestive heart failure with congestive hepatic failure. 3.Congestive heart failure. Cardiology on board. Systolic dysfunction, acute. 4.Acute on chronic renal failure. Creatinine slightly improved. We will continue with treatment. Follow up with Nephrology recommendations. Monitor creatinine. 5.Sepsis. The patient on broad-spectrum IV antibiotics. Cultures are negative. Sputum culture did show yeast. 6.Morbid obesity. BMI 48.5. Plan: Overall poor prognosis. We will continue to monitor closely in ICU setting. SA/MODL Voice ID: [id number] Report ID: [id number]
[2017-07-27 20:42] LABS: HIV 1/2 Antibody Diff Not indicated.; HIV AG/AB 4TH GEN Non-reactive (Non-reactive)
[2017-07-27 22:22] LABS: Albumin, (SPE) 3.1 g/dL (3.8-4.8); Alpha-1-Globulins 0.3 g/dL (0.2-0.3); Alpha-2-Globulins 0.5 g/dL (0.5-0.9); Gamma Globulins 1.2 g/dL (0.8-1.7); INTERPRETATION REPORT
[2017-07-28] MEDS: FENTANYL CITR 100 MCG/2 ML IV PRN ×5 (00:21→18:18)
[2017-07-28] MEDS: LORazepam 2 MG/ML VIAL IV PRN ×5 (00:21→18:19)
[2017-07-28] MEDS: KCL 20 MEQ/100 mL IVPB 20 MEQ/100 ML BAG IV SCH (01:03)
--- NOTE | 2017-07-28 01:14 | PN ---
Date of Progress Note: 07/27/2017 Chief Complaint: Acute kidney injury. History Of Present Illness: The patient has acute on chronic kidney injury. Renal function has some what improved over the last 48 hours. Creatinine 2.57 on July 25 and today is 1.8. There is high B UN and creatinine ratio secondary to diuretic effect and cardiorenal syndrome. The patient has hepat itis and total bilirubin is 23.5. Fluid overload and anasarca. The patient is treated with Lasix drip and IV Lasix boluses. Urine out put is adequate. The patient is diuresing well. The patient remains intubated. He is encephalopathic and cannot provide review of systems. Review of Systems: Unobtainable. Physical Examination: Lungs: Few crackles at bases. Heart: S1, S2. Abdomen: Soft, benign. Extremities: Edema and 2-3+ in upper and lower extremities. Laboratory Data: Sodium 146, potassium 3.9, chloride 104, CO2 of 34, BUN 55, creatinine 1.83, glucos e 134, calcium 8.5, phosphorus 2.8, magnesium 1.6. Impression And Plan: 1.Acute on chronic kidney injury with cardiorenal syndrome. Continue diuretics to control severe fl uid overload and anasarca. The patient remains intubated. The patient has congestive heart failure, hypoxemic respiratory failure, and multiorgan failure. He will continue the ventilator support. 2.Hepatitis, possible shock liver. The patient will need further workup as per primary team. 3.Secondary hyperparathyroidism. Monitor parathyroid hormone. Check calcium phosphorus level. 4.Hypomagnesemia. Replacement as needed. 5.Hypokalemia. Potassium replacement ordered. 6.Liver failure, possible shock liver. Further workup per primary team and GI. EB/MODL Voice ID: [id number] Report ID: [id number]
[2017-07-28] MEDS: VITAL AF 1,000 ML BOT FT SCH ×2 (02:14→18:28)
[2017-07-28] MEDS ORDERED: FUROSEMIDE 40 MG/4 ML VIAL IV SCH (04:00)
[2017-07-28] MEDS: INSULIN -REGULAR HUMAN 50 UNIT/0.5 ML ML SQ SCH ×4 (05:22→18:00)
[2017-07-28] MEDS: MIDODRINE HCL 5 MG TABLET FT SCH ×3 (05:23→21:04)
[2017-07-28 05:24] LABS: Absolute Lymphocytes (CBC) 1.5 K/uL (0.7-4.9); Absolute Monocytes 3.1 K/uL (0.1-1.3); Absolute Neutrophil 9.8 K/uL (1.8-8.0); Eosinophils % 2.2 % (0-4.4); Hematocrit 30.2 % (39.6-49.0); Lymphocytes % 10.1 % (15.3-44.8); MCH 26.4 pg (27.0-35.0); MCV 81.6 fL (80-100); MPV 8.7 fL (7.6-11.3); Monocytes % 20.8 % (3.3-12.3)
[2017-07-28 05:50] LABS: Albumin 3.1 g/dL (3.2-5.5); Phosphorus 2.9 mg/dL (2.5-4.3); Potassium 3.8 mEq/L (3.6-5.0); Protein, Total 6.2 g/dL (6.0-8.3)
[2017-07-28 05:58] LABS: Anisocytosis 3+; Blood Morphology Comment NOTED (NOT SEEN); Platelet Estimate DECR; Poikilocytosis 2+; Polychromasia SLIGHT; Target Cells 2+
[2017-07-28 06:07] LABS: Magnesium 1.8 mg/dL (1.8-2.5)
[2017-07-28 06:08] LABS: Bilirubin Direct 15.8 mg/dL (0-0.2); Bilirubin Total 28.7 mg/dL (0.3-1.2)
[2017-07-28] MEDS: FAMOTIDINE 20 MG/2 ML VIAL IV SCH ×2 (09:03→21:04)
[2017-07-28] MEDS: THIAMINE 200 MG/2 ML INJ IVP SCH (09:03)
[2017-07-28] MEDS: Meropenem 500 MG in NA CHLORIDE 0.9% 100 ML IV SCH ×2 (09:04→21:04)
[2017-07-28] MEDS: FUROSEMIDE 100 MG in NA CHLORIDE 0.9% 90 ML IV SCH ×3 (10:25→19:35)
--- NOTE | 2017-07-28 10:53 | RAD REPORT ---
EXAM DESCRIPTION: RAD - Chest Single View - 07/28/2017 6:49 am CLINICAL HISTORY: Respiratory failure. COMPARISON: 07/27/2017 FINDINGS: Portable technique limits examination quality. Tip of the ET tube is above the paulette. Enteric tube descends in the stomach. Bilateral pulmonary opa cities are present, slightly worse relative to comparative study and accentuated by incomplete inspir ation. The heart is mildly enlarged in size with multilead pacer/ defibrillator device present. IMPRESSION: Mild worsening in lung aeration since 07/27/2017.
[2017-07-28] MEDS: ALBUMIN HUMAN 25% 50 ML IV SCH ×2 (11:29→18:19)
--- NOTE | 2017-07-28 12:34 | PN ---
Date of Progress Note: 07/28/2017 Subjective: The patient seen and examined. Chart reviewed and case discussed with RN. The patient continues to be nonresponsive, ventilator dependent, not on sedation. Review of Systems: Limited due to patient's medical condition. Medications: Reviewed. Physical Examination: Vital Signs: Temperature 98.4, heart rate 112, blood pressure 130/73, respirations 14, O2 96% on ET tube. General: Asleep, Opens eyes spontaneously. Jaundiced, ill-appearing elderly male, morbidly obese, BMI 47.8. CV: S1, S2. Peripheral pulses weak bilaterally. No murmurs. Respiratory: Diminished breath sounds. No wheezing. Gastrointestinal: Abdomen is soft, nondistended. Positive bowel sounds. Extremities: No clubbing, cyanosis. 2+ peripheral edema. Neuro: Opens eyes spontaneously. Does not follow commands. Moves all 4 extremities. Laboratory Data: Sodium 148, potassium 3.8, chloride 105, CO2 36, BUN 58, creatinine 1.77, glucose 128, calcium 8.9, phosphorus 2.9, magnesium 1.8, total bilirubin 28.7, direct bilirubin 15.8, AST 74, ALT 95, alkaline phosphatase 75, albumin 3.1, INR 2.09. WBC 14.8, H and H 7.8, 30.2, platelets 96. Blood cultures negative to date. Assessment And Plan: A 66-year-old male with: 1. Acute respiratory failure secondary to congestive heart failure. The patient is on mechanical ventilation. Today is day 7 of mechanical ventilation. The patient's primary care physician, Dr. Sargent to have discussion with family regarding terminal wean versus trach in LTAC placement on Saturday. 2. Shock liver. Ultrasound only shows fatty liver disease, likely secondary to septic hepatopathy, may also be related to congestive hepatic failure. Appreciate GI input. 3. Acute systolic heart failure. Continue diuresis. The patient's fluid balance is positive 100 at this time. Cardiology on board. 4. Acute on chronic renal failure. Creatinine stable, slightly improved from yesterday. Nephrology on board. We will continue to monitor. 5. Sepsis, unclear etiology. The patient on broad-spectrum IV antibiotics. Blood cultures negative. Final sputum culture showed yeast. 6. Morbid obesity, BMI 48.5. 7. Overall, poor prognosis. Family to make decision regarding terminal wean versus trach LTAC placement in a.m. /EARLENE Voice ID: [id number] Report ID: [id number] MONIQUE
[2017-07-28] MEDS ORDERED: KCL 20 MEQ/100 mL IVPB 20 MEQ/100 ML BAG IV SCH (16:00)
[2017-07-28] MEDS ORDERED: MAGNESIUM SULFATE 1 gm IVPB 1 GM/100 ML BAG IV ONE (16:00)
--- NOTE | 2017-07-28 22:20 | PN ---
Date of Progress Note: 07/28/2017 Chief Complaint: Acute kidney injury on chronic kidney disease. Subjective: Renal function somewhat improved over last 3 days. The patient has anasarca, fluid over load. He is undergoing treatment with IV diuretics today. Lasix drip with IV albumin was resumed. The patient is receiving electrolyte replacement with magnesium and potassium. Review of Systems: Unobtainable. The patient is intubated, encephalopathic, confused. Objective: Lungs: Few crackles at bases. Heart: S1, S2. Abdomen: Soft, benign. Extremities: Edema present in upper and lower extremities. Vital Signs: Blood pressure is 130/85. Laboratory Data: Showed hemoglobin 9.8, WBC 14.8, platelet count 96,000. Sodium 148, potassium 3.8, chloride 105, CO2 26, BUN 58, creatinine 1.77. Total bilirubin 28.7, phosphorus 2.9, calcium 8.9. Impression And Plan: 1.Acute kidney injury, nonoliguric. Continue diuretics for control of the hypervolemia. The patien t has anasarca. The patient was found to have DVT. Further management for DVT by primary team and P ulmonary Service. 2.Hypertension, controlled. 3.The patient has severe hepatitis and hyperbilirubinemia. Further workup by GI team. 4.Encephalopathy, likely related to multiorgan failure including liver failure. 5.Hypoxemia. The patient is on vent. Continue ventilator support. EB/MODL Voice ID: [id number] Report ID: [id number]
[2017-07-29] MEDS: ALBUMIN HUMAN 25% 50 ML IV SCH ×2 (00:12→05:45)
[2017-07-29] MEDS: FENTANYL CITR 100 MCG/2 ML IV PRN ×5 (00:12→19:50)
[2017-07-29] MEDS: FUROSEMIDE 100 MG in NA CHLORIDE 0.9% 90 ML IV SCH ×2 (00:13→05:44)
[2017-07-29] MEDS: LORazepam 2 MG/ML VIAL IV PRN ×5 (00:13→19:50)
[2017-07-29] MEDS: INSULIN -REGULAR HUMAN 50 UNIT/0.5 ML ML SQ SCH ×5 (05:45→23:40)
[2017-07-29] MEDS: MIDODRINE HCL 5 MG TABLET FT SCH ×3 (05:45→20:10)
[2017-07-29 05:47] LABS: Absolute Lymphocytes (CBC) 1.8 K/uL (0.7-4.9); Absolute Monocytes 2.7 K/uL (0.1-1.3); Absolute Neutrophil 10.5 K/uL (1.8-8.0); Eosinophils % 1.8 % (0-4.4); Lymphocytes % 11.7 % (15.3-44.8); MCH 26.7 pg (27.0-35.0); MPV 8.4 fL (7.6-11.3); Monocytes % 17.3 % (3.3-12.3); RBC Red Blood Cell Count 3.41 M/uL (4.33-5.43)
[2017-07-29 06:06] LABS: Magnesium 1.7 mg/dL (1.8-2.5); Phosphorus 3.1 mg/dL (2.5-4.3); Potassium 3.5 mEq/L (3.6-5.0); Protein, Total 6.2 g/dL (6.0-8.3)
[2017-07-29 06:51] VITALS: BMI 48.6
[2017-07-29] MEDS ORDERED: KCL 20 MEQ/100 mL IVPB 20 MEQ/100 ML BAG IV SCH (07:00)
[2017-07-29] MEDS ORDERED: MAGNESIUM SULFATE 1 gm IVPB 1 GM/100 ML BAG IV ONE (07:00)
--- NOTE | 2017-07-29 08:10 | P.PN ---
Subjective Date of Service: 07/29/17 Primary Care Provider: Adeola Rizzo Chief Complaint: Respiratory failure be shocked liver Patient's condition is not improving he has continued to deteriorate bilirubin is worsening unresponsive and jaundice now mildly hypernatremic kidney function is worsening what organ dysfunction Review of Systems is unable to be obtained Physical Examination - Vital Signs Temperature: 97.9 F Blood Pressure: 133/78 Pulse: 127 Respirations: 16 Pulse Ox (%): 97 - Physical Exam General: Unresponsive, Other (Deeply jaundiced) Respiratory: Crackles/rales Cardiovascular: Regular rate/rhythm, Edema (Bilateral edema) Assessment & Plan - Problems (Diagnosis) (1) Respiratory failure Onset Date: 07/22/17 Current Visit: Yes Status: Acute Plan: Patient nods patchy bilateral infiltrates although oxygenation is satisfactory Qualifiers: Chronicity: acute (2) Shock liver Onset Date: 07/22/17 Current Visit: Yes Status: Acute Plan: Patient has shocked liver progressively worsening liver function tests including his bilirubin which is not 31 patient is deeply jaundiced metabolic encephalopathy felt I organ failure of nose is poor rate care to discuss withdrawal of care so far cultures and negative Physician Review: Patient Assessed, Agree with Above Assessment and Plan
[2017-07-29] MEDS ORDERED: D5W 1,000 ML with POTASSIUM CL 20 MEQ IV SCH ×2 (10:00)
[2017-07-29] MEDS: THIAMINE 200 MG/2 ML INJ IVP SCH (10:27)
[2017-07-29] MEDS: FAMOTIDINE 20 MG/2 ML VIAL IV SCH ×2 (10:27→20:09)
[2017-07-29] MEDS: Meropenem 500 MG in NA CHLORIDE 0.9% 100 ML IV SCH ×2 (10:29→20:09)
[2017-07-29] MEDS ORDERED: POTASSIUM 25 MEQ EFFERV TAB PO ONE (10:58)
--- NOTE | 2017-07-29 11:39 | P.PN ---
Subjective Date of Service: 07/29/17 Primary Care Provider: Adeola Rizzo Chief Complaint: Respiratory failure be shocked liver Patient has bilateral Upper extremity dvts Review of Systems is unable to be obtained Physical Examination - Vital Signs Temperature: 97.9 F Blood Pressure: 140/89 Pulse: 134 Respirations: 20 Pulse Ox (%): 96 - Physical Exam General: Unresponsive HEENT: Atraumatic, PERRLA, EOMI, Scleral icterus Neck: Supple, JVD not distended Respiratory: Clear to auscultation bilaterally, Normal air movement Cardiovascular: Regular rate/rhythm, Normal S1 S2 Gastrointestinal: Normal bowel sounds, No tenderness Musculoskeletal: No tenderness Integumentary: No rashes Neurological: Normal speech, Normal tone, Normal affect Lymphatics: No axilla or inguinal lymphadenopathy Assessment & Plan - Problems (Diagnosis) (1) End of life care Current Visit: Yes Status: Acute Plan: Patient has respiratory, liver and kidney failure. With the bilateral UE DVT, we could call that a failure of the blood system. So multi organ system failure. Very poor prognosis. Have called the [facility]. There will be a family meetin geovanna at 6pm. Have already broached the subjective of withdrawing care from the patient. The [facility] had seemed to accept that. We had a family meeting the past when the family was leaning in that directions. (2) Deep vein thrombosis (DVT) of both upper extremities Current Visit: Yes Status: Acute Plan: or the right brachial and left cephalic. Most likely due to liver failure. We can check PT INR. However as the patient is a possible terminal wean its an academic point. Qualifiers: Affected thrombotic vein of extremity: axillary Chronicity: acute Qualified Code(s): I82.A13 - Acute embolism and thrombosis of axillary vein, bilateral (3) Respiratory failure Onset Date: 07/22/17 Current Visit: Yes Status: Acute Plan: Patient is not weaning off the ventilator. Better diuresis. However he is not waking up. Possible hepatic ecephalopathy as stated by Dr. Umanzor. Have discussed code status with his family last night. Will speak with them again about possible terminal wean. This is day 5 of him being on a vent. At day 7 will discuss a terminal wean vs. parts counterman placement. Qualifiers: Chronicity: acute (4) Shock liver Onset Date: 07/22/17 Current Visit: Yes Status: Acute Plan: Ultrasound pending to rule out obstructions. Fatty liver on Ultrasound. The patients liver profile is worsening. Will consult Dr. Tejeda (5) CHF (congestive heart failure) Onset Date: 07/22/17 Current Visit: Yes Status: Chronic Plan: Patient has a history of severe chf. will continue monitoring his functions Gentle hydration. Patients and family states he seems like he wants to , or he has given up. Will discuss a terminal wean with them on Saturday, unless he gets extubated Qualifiers: Qualified Code(s): I50.21 - Acute systolic (congestive) heart failure (6) Renal failure (ARF), acute on chronic Onset Date: 07/22/17 Current Visit: Yes Status: Acute Plan: worsening function. Normal ultrasound. Nephrology is correcting his electolyte imbalance. Qualifiers: Acute renal failure type: with acute renal cortical necrosis Chronic kidney disease stage: stage 3 (moderate) Qualified Code(s): N17.1 - Acute kidney failure with acute cortical necrosis; N18.3 - Chronic kidney disease, stage 3 (moderate); N18.3 - Chronic kidney disease, stage 3 (moderate) (7) Sepsis Onset Date: 07/22/17 Current Visit: Yes Status: Acute Plan: Start vancomycin and meropenem. Cultures are pending. Will continue the d5w. repeated acuchecks. Will be gentle with the fluids due to his history of chf. Qualifiers: Sepsis type: sepsis due to unspecified organism Qualified Code(s): A41.9 - Sepsis, unspecified organism Physician Review: Patient Assessed, Agree with Above Assessment and Plan Critical Care: Yes Time Spent Managing Pts Care (In Minutes): 45
[2017-07-29 18:28] LABS: P-ANCA Anti-Myeloperoxidase Ab <1.0 AI (<1.0)
[2017-07-29 23:05] LABS: Potassium 3.9 mEq/L (3.6-5.0)
[2017-07-29] MEDS: Morphine 2 MG/2 ML SYR IV PRN (23:30)
--- NOTE | 2017-07-30 01:43 | PN ---
Date of Progress Note: 07/29/2017 Chief Complaint: Acute on chronic kidney injury, cardiorenal syndrome, anasarca. Subjective: The patient completed IV sodium, IV Lasix and sodium level was found to be elevated today. The patient was found to have hypernatremia, sodium 151; hypokalemia, potassium 3.5; magnesium 1.7 which was below normal range. The patient completed IV Lasix drip and the patient is to have free water with tube feeding to treat hypernatremia. Potassium replacement was ordered with tube feeding. Review of Systems: Unobtainable. The patient is intubated and encephalopathic. Cannot provide review of systems due to current condition. Objective: Lungs: Few crackles. Heart: S1, S2. Abdomen: Soft, benign. Extremities: Upper and lower extremity edema. Laboratory Data: Sodium 151, potassium 3.5, chloride 107, CO2 35, BUN 62, creatinine 1.85, bilirubin total 31, magnesium 1.7, phosphorus 3.1. Impression And Plan: 1. Acute on chronic kidney injury. Continue adequate fluid replacement and free water with tube feeding if started to treat hypernatremia. 2. Encephalopathy. The patient has severe hyperbilirubinemia. Further workup with primary team. 3. Acute on chronic kidney injury due to cardiorenal syndrome. Renal function somewhat improved. There is ongoing high BUN and creatinine ratio. The patient may require dialysis if does not respond to diuretics. Currently, diuretics on hold to control electrolytes. EB/MODL Voice ID: [id number] Report ID: [id number] MTDGloria
[2017-07-30] MEDS: Morphine 2 MG/2 ML SYR IV PRN ×4 (02:30→14:14)
[2017-07-30] MEDS: MIDODRINE HCL 5 MG TABLET FT SCH ×2 (06:00→14:00)
[2017-07-30] MEDS: INSULIN -REGULAR HUMAN 50 UNIT/0.5 ML ML SQ SCH ×2 (06:00→10:57)
[2017-07-30 06:29] LABS: Absolute Lymphocytes (CBC) 1.9 K/uL (0.7-4.9); Absolute Neutrophil 16.5 K/uL (1.8-8.0); Eosinophils % 1.5 % (0-4.4); Hematocrit 31.4 % (39.6-49.0); Lymphocytes % 8.8 % (15.3-44.8); MCH 26.7 pg (27.0-35.0); MCV 84.2 fL (80-100); MPV 8.7 fL (7.6-11.3); Monocytes % 13.6 % (3.3-12.3)
[2017-07-30 06:37] LABS: RBC Red Blood Cell Count 3.72 M/uL (4.33-5.43)
[2017-07-30 07:21] LABS: Albumin 2.9 g/dL (3.2-5.5); Potassium 4.2 mEq/L (3.6-5.0); Protein, Total 7.1 g/dL (6.0-8.3)
[2017-07-30 07:24] LABS: Bilirubin Total 36.4 mg/dL (0.3-1.2)
[2017-07-30 08:09] LABS: Magnesium 2.2 mg/dL (1.8-2.5); Phosphorus 4.1 mg/dL (2.5-4.3)
[2017-07-30] MEDS: Meropenem 500 MG in NA CHLORIDE 0.9% 100 ML IV SCH (08:52)
[2017-07-30] MEDS: FAMOTIDINE 20 MG/2 ML VIAL IV SCH (08:52)
[2017-07-30] MEDS: THIAMINE 200 MG/2 ML INJ IVP SCH (08:53)
[2017-07-30 10:04] VITALS: BP 131/61; TEMP 99.6
[2017-07-30] MEDS: LORazepam 2 MG/ML VIAL IV PRN (10:41)
--- NOTE | 2017-07-30 12:09 | P.PN ---
Subjective Date of Service: 07/30/17 Primary Care Provider: Adeola Rizzo Chief Complaint: Respiratory failure be shocked liver Patient extubated. Is hypoxic with out oxygen Review of Systems is unable to be obtained Physical Examination - Vital Signs Temperature: 99.6 F Blood Pressure: 131/61 Pulse: 134 Respirations: 28 Pulse Ox (%): 92 - Physical Exam General: Unresponsive HEENT: Atraumatic, PERRLA, EOMI Neck: Supple, JVD not distended Respiratory: Clear to auscultation bilaterally, Normal air movement Cardiovascular: Regular rate/rhythm, Normal S1 S2 Gastrointestinal: Normal bowel sounds, No tenderness Musculoskeletal: No tenderness Integumentary: No rashes Neurological: Normal speech, Normal tone, Normal affect Lymphatics: No axilla or inguinal lymphadenopathy Assessment & Plan - Problems (Diagnosis) (1) End of life care Current Visit: Yes Status: Acute Plan: Will move to the floor. Have discussed with family. Will have a [facility] discuss bereavement care with the family. Unlikely to last the day (2) Deep vein thrombosis (DVT) of both upper extremities Current Visit: Yes Status: Acute Plan: or the right brachial and left cephalic. Most likely due to liver failure. We can check PT INR. However as the patient is a possible terminal wean its an academic point. Qualifiers: Affected thrombotic vein of extremity: axillary Chronicity: acute Qualified Code(s): I82.A13 - Acute embolism and thrombosis of axillary vein, bilateral (3) Respiratory failure Onset Date: 07/22/17 Current Visit: Yes Status: Acute Plan: Patient is not weaning off the ventilator. Better diuresis. However he is not waking up. Possible hepatic ecephalopathy as stated by Dr. Umanzor. Have discussed code status with his family last night. Will speak with them again about possible terminal wean. This is day 5 of him being on a vent. At day 7 will discuss a terminal wean vs. exterminator placement. Qualifiers: Chronicity: acute (4) Shock liver Onset Date: 07/22/17 Current Visit: Yes Status: Acute Plan: Ultrasound pending to rule out obstructions. Fatty liver on Ultrasound. The patients liver profile is worsening. Will consult Dr. Tejeda (5) CHF (congestive heart failure) Onset Date: 07/22/17 Current Visit: Yes Status: Chronic Plan: Patient has a history of severe chf. will continue monitoring his functions Gentle hydration. Patients and family states he seems like he wants to , or he has given up. Will discuss a terminal wean with them on Saturday, unless he gets extubated Qualifiers: Qualified Code(s): I50.21 - Acute systolic (congestive) heart failure (6) Renal failure (ARF), acute on chronic Onset Date: 07/22/17 Current Visit: Yes Status: Acute Plan: worsening function. Normal ultrasound. Nephrology is correcting his electolyte imbalance. Qualifiers: Acute renal failure type: with acute renal cortical necrosis Chronic kidney disease stage: stage 3 (moderate) Qualified Code(s): N17.1 - Acute kidney failure with acute cortical necrosis; N18.3 - Chronic kidney disease, stage 3 (moderate); N18.3 - Chronic kidney disease, stage 3 (moderate) (7) Sepsis Onset Date: 07/22/17 Current Visit: Yes Status: Acute Plan: Start vancomycin and meropenem. Cultures are pending. Will continue the d5w. repeated acuchecks. Will be gentle with the fluids due to his history of chf. Qualifiers: Sepsis type: sepsis due to unspecified organism Qualified Code(s): A41.9 - Sepsis, unspecified organism Discharge Plan: Home Plan to discharge in: 24 Hours - Code Status/Comfort Care Code Status Assessed: No Code Status: Do Not Resuscitate Comfort Measures: Hospice Care Physician Review: Patient Assessed, Agree with Above Assessment and Plan Critical Care: No Time Spent Managing Pts Care (In Minutes): 25
[2017-07-30 12:17] VITALS: O2SAT 78
--- NOTE | 2017-07-30 16:55 | P.DS ---
Admission Date: 07/21/17 Discharge Date: 07/30/17 Primary Care Provider: Adeola Rizzo Disposition: Reason for Admission: Respiratory failure be shocked liver - Problems (1) End of life care Status: Acute (2) Deep vein thrombosis (DVT) of both upper extremities Status: Acute Qualifiers: Affected thrombotic vein of extremity: axillary Chronicity: acute Qualified Code(s): I82.A13 - Acute embolism and thrombosis of axillary vein, bilateral (3) Respiratory failure Onset Date: 07/22/17 Status: Acute Qualifiers: Chronicity: acute (4) Shock liver Onset Date: 07/22/17 Status: Acute (5) CHF (congestive heart failure) Onset Date: 07/22/17 Status: Chronic Qualifiers: Qualified Code(s): I50.21 - Acute systolic (congestive) heart failure (6) Renal failure (ARF), acute on chronic Onset Date: 07/22/17 Status: Acute Qualifiers: Acute renal failure type: with acute renal cortical necrosis Chronic kidney disease stage: stage 3 (moderate) Qualified Code(s): N17.1 - Acute kidney failure with acute cortical necrosis; N18.3 - Chronic kidney disease, stage 3 (moderate); N18.3 - Chronic kidney disease, stage 3 (moderate) (7) Sepsis Onset Date: 07/22/17 Status: Acute Qualifiers: Sepsis type: sepsis due to unspecified organism Qualified Code(s): A41.9 - Sepsis, unspecified organism Brief History of Present Illness: Patient is an office patient of Adeola Rizzo. Has has a history of poorly controlled chf. He has come to the office several times with weakness and fluid overload. Came to the ER Last night with signs of sepsis and was intubated. No family at the bedside. He has an elevated bilirubin. Mildly elevated wbc. Hospital Course: Patient worsened during his stay. Failed to be extubated after 8 days we had a family movement. The patient's family decided to terminal wean the patient. A med hospice was consulted to provide support to the patient. He was transfered to the floor. at 14:20 on 07/30/17 Vital Signs/Physical Exam: Temp Pulse Resp BP Pulse Ox 99.6 F 134 H 28 H 131/61 92 07/30/17 12:09 07/30/17 12:09 07/30/17 12:09 07/30/17 12:09 07/30/17 12:09 General: Unresponsive Laboratory Data at Discharge: WBC 21.9 K/uL (4.3-10.9) H* D 07/30/17 05:00 Hgb 9.9 g/dL (13.6-17.9) L 07/30/17 05:00 Hct 31.4 % (39.6-49.0) L 07/30/17 05:00 Plt Count 165 K/uL (152-406) D 07/30/17 05:00 PT 24.8 SECONDS (9.5-12.5) H 07/27/17 10:30 INR 2.09 07/27/17 10:30 APTT 50.8 SECONDS (24.3-36.9) H 07/23/17 05:20 Sodium 153 mEq/L (135-145) H 07/30/17 05:00 Potassium 4.2 mEq/L (3.6-5.0) 07/30/17 05:00 BUN 72 mg/dL (6-20) H 07/30/17 05:00 Creatinine 2.10 mg/dL (0.61-1.24) H 07/30/17 05:00 Glucose 91 mg/dL (65-120) 07/30/17 05:00 Phosphorus 4.1 mg/dL (2.5-4.3) 07/30/17 07:11 Magnesium 2.2 mg/dL (1.8-2.5) D 07/30/17 07:11 Total Bilirubin 36.4 mg/dL (0.3-1.2) H* 07/30/17 05:00 AST 65 IU/L (10-42) H 07/30/17 05:00 ALT 61 IU/L (10-60) H 07/30/17 05:00 Alkaline Phosphatase 64 IU/L (42-121) 07/30/17 05:00 B-Natriuretic Peptide 3600 pg/ml (<=100) H 07/21/17 01:57 Home Medications: Furosemide [Lasix] 80 mg PO DAILY 07/29/17 Time spent managing pt's care (in minutes): 45
[2017-07-31 05:37] LABS: Beta Globulin 24 HR Urine 15 %; Creatinine 24 Hour Urine 0.89 g/24 h (0.63-2.50); Gamma Globulin, 24hr Urine 24 %; Interpretation: REPORT; Urine Alpha-2-Globulins, 24 Hr 7 %; Urine PEP Abn Protein Band1 REPORT; Urine Protein/Creat Ratio 24Hr 1179 mg/g creat (<=84); Urine Total Volume 24 Hours 1300 mL
== END 2017-07-30 13:59 | disposition hospice, inpatient (51) | DRG 870 ==
LOC: ER 00:03 → ERHOLD 05:44 → 3RD-ICU 06:17 → 2ND 07-30 10:02
PROVIDERS: ADMIT Internal Medicine; ATTEND Internal Medicine
PROC: 0BH17EZ Insertion of Endotracheal Airway into Trachea, Via Natural or Artificial Opening (ICD-10-PCS; principal; 2017-07-21)
PROC: 5A1955Z Respiratory Ventilation, Greater than 96 Consecutive Hours (ICD-10-PCS; 2017-07-21)
DX: A41.9 Sepsis, unspecified organism (principal); R65.21 Severe sepsis with septic shock; G93.41 Metabolic encephalopathy; K72.00 Acute and subacute hepatic failure without coma; N17.1 Acute kidney failure with acute cortical necrosis; J96.00 Acute respiratory failure, unspecified whether with hypoxia or hypercapnia; R57.0 Cardiogenic shock; I50.23 Acute on chronic systolic (congestive) heart failure; B37.1 Pulmonary candidiasis; I13.0 Hypertensive heart and chronic kidney disease with heart failure and stage 1 through stage 4 chronic kidney disease, or unspecified chronic kidney disease; E87.2 Acidosis; N25.81 Secondary hyperparathyroidism of renal origin; Z68.42 Body mass index [BMI] 45.0-49.9, adult; I82.623 Acute embolism and thrombosis of deep veins of upper extremity, bilateral; Z51.5 Encounter for palliative care; N18.3 Chronic kidney disease, stage 3 (moderate); E78.5 Hyperlipidemia, unspecified; E87.6 Hypokalemia; E83.42 Hypomagnesemia; E66.01 Morbid (severe) obesity due to excess calories; I48.2 Chronic atrial fibrillation; E80.6 Other disorders of bilirubin metabolism; Z66 Do not resuscitate; Z79.01 Long term (current) use of anticoagulants; Z95.810 Presence of automatic (implantable) cardiac defibrillator
CPT/HCPCS: 31500; 36415; 71045; 76705; 76770; 80048; 80053; 80069; 80074; 80076; 80202; 80307; 81003; 82140; 82248; 82533; 82550; 82570; 82805; 82962; 83520; 83605; 83615; 83735; 83880; 83970; 84100; 84132; 84156; 84165; 84166; 84443; 84484; 85025; 85044; 85384; 85610; 85730; 86021; 86038; 86160; 86225; 86850; 86900; 86901; 87040; 87070; 87205; 87389; 93005; 93306; 93970; 94002; 94003; 94660; 96365; 96367; 96375; 99291; 99292; J0330; J0692; J1630; J1940; J2250; J2270; J3010; J3370; J3411; J3475; J7030; P9047

== ENCOUNTER 2017-07-30 14:00 | Inpatient (IN) | payer BC, OTHER | END 2017-07-30 14:20 | disposition E | DRG 951 | LOC: 2ND 14:00 → UNDOADMIN 14:38 → 2ND 14:38 → UNDOADMIN 16:00 → UNDODISIN 16:07 | PROVIDERS: ADMIT Internal Medicine; ATTEND Internal Medicine | DX: Z51.5 Encounter for palliative care (principal); A41.9 Sepsis, unspecified organism; R65.21 Severe sepsis with septic shock; G93.41 Metabolic encephalopathy; K72.00 Acute and subacute hepatic failure without coma; N17.1 Acute kidney failure with acute cortical necrosis; J96.00 Acute respiratory failure, unspecified whether with hypoxia or hypercapnia; R57.0 Cardiogenic shock; I50.23 Acute on chronic systolic (congestive) heart failure; B37.1 Pulmonary candidiasis; I13.0 Hypertensive heart and chronic kidney disease with heart failure and stage 1 through stage 4 chronic kidney disease, or unspecified chronic kidney disease; E87.2 Acidosis; Z68.42 Body mass index [BMI] 45.0-49.9, adult; I82.623 Acute embolism and thrombosis of deep veins of upper extremity, bilateral; N18.3 Chronic kidney disease, stage 3 (moderate); E78.5 Hyperlipidemia, unspecified; E87.6 Hypokalemia; E83.42 Hypomagnesemia; E66.01 Morbid (severe) obesity due to excess calories; I48.2 Chronic atrial fibrillation; E80.6 Other disorders of bilirubin metabolism; Z66 Do not resuscitate ==